=== PATIENT | female | born 1985 | race Caucasian/White ===

== ENCOUNTER 2016-03-06 17:47 | Emergency (ER) | payer OTHER ==
[2016-03-06 18:25] VITALS: TEMP 97.8; BMI 18.0
--- NOTE | 2016-03-06 20:06 | PDOC ---
*Physical Exam - Vital Signs Last Vital Signs Temp Pulse Resp BP Pulse Ox 97.8 F 112 H 16 123/80 97 03/06/16 17:56 03/06/16 17:56 03/06/16 17:56 03/06/16 17:56 03/06/16 17:56 ED Treatment Course - LABORATORY CBC & Chemistry Diagram: 03/06/16 22:20 03/06/16 21:11 Medical Decision Making - Medical Decision Making 03/06/16 20:06 agree with care from CLARICE Escobedo *DC/Admit/Observation/Transfer Diagnosis at time of Disposition: Head injury, Post-concussion syndrome - Discharge Dispostion Disposition: HOME Condition at time of disposition: Stable - Prescriptions Prescriptions: Acetaminophen/Caffeine/Butalb [Fioricet -] 1 - 2 tab PO Q6H PRN #28 tablet MDD 6 tabs PRN Reason: Severe Pain Ondansetron [Zofran Odt -] 4 mg SL Q6H PRN #20 od.tablet PRN Reason: Nausea - Referrals Referrals: Laly Robertson MD [Staff Physician] - - Patient Instructions Additional Instructions: FOLLOW UP WITH DR. ROBERTSON (NEUROLOGY) REGARDING YOUR SYMPTOMS. CALL TO SCHEDULE APPOINTMENT. TAKE MEDICATIONS PRESCRIBED. DO NOT DRINK ALCOHOL, DRIVE OR OPERATE HEAVY MACHINERY WHILE TAKING FIORICET. YOU SHOULD BE ON BRAIN REST. NO EXCESS CELLPHONE USE, TV, RADIO, BRIGHT LIGHTS. GET PLENTY REST AND STAY HYDRATED. YOU NEED TO SEE A NEUROLOGIST SOON POSSIBLE TO DEAL WITH YOUR SYMPTOMS. Print Language: BENGALI - Post Discharge Activity Work/School Note: Back to Work
[2016-03-06 21:34] LABS: URINE APPEARANCE CLEAR; URINE BILIRUBIN NEGATIVE (NEGATIVE); URINE BLOOD NEGATIVE (NEGATIVE); URINE COLOR STRAW; URINE GLUCOSE (UA) 3+ (NEGATIVE); URINE KETONE TRACE (NEGATIVE); URINE LEUK ESTERASE NEGATIVE (NEGATIVE); URINE NITRITE NEGATIVE (NEGATIVE); URINE PROTEIN NEGATIVE (NEGATIVE); URINE UROBILINOGEN NEGATIVE E.U./dl (0.2-1.0)
[2016-03-06] MEDS ORDERED: ACETAMINOPHEN/CAFFEINE/BUTALBITAL 1 TAB PO ONE (21:42)
[2016-03-06 21:45] LABS: CALCIUM 9.1 mg/dL (8.5-10.1); CREATININE 0.5 mg/dL (0.55-1.02)
--- NOTE | 2016-03-06 21:47 | PDOC ---
History of Present Illness - General Chief Complaint: Lightheaded Stated Complaint: DIZZINESS Time Seen by Provider: 03/06/16 19:42 History Source: Patient Exam Limitations: No Limitations - History of Present Illness Initial Comments: 03/06/16 21:42 30yo Female patient presents to ED c/o recent head injury w/ symptoms of nausea , confusion, headache. Patient reports she was recently evaluated in a [facility] on Mar 04 for intoxication and head injury. Patient states she can not recall everything but she had a fall with +LOC, and chipped her front tooth. She states Ct scans done but does not know the results. LNMP: Feb 21. She is experiencing dizziness, confusion, nausea, headache and back pain. She denies CP, Diff breathing, fever, vomiting, diarrhea, seizures, or any other complaints at this time. 03/06/16 21:46 Timing/Duration: other (2 days ago.) Severity: moderate Modifying Factors: worse with: cold therapy, eating, immobilization, medication , movement, rest, other Associated Symptoms: reports: headaches, other (Nausea, Confusion, back pain) Aspirin Received prior to arrival: No: no aspirin today, unknown, 81 mg x 1, 81 mg x 2, 81 mg x 3, 81 mg x 4, 325 mg x 1, provided at home, provided by EMS, provided by ED Asa Contraindications(Core Measure): No: Allergy, Other, Active Blding w/i 24 hrs., Plavix, Receiving Warfarin Beta Alisha Contraindications(Core Measure): No: Not Prescribed, Allergy, Bradycardia (HR <60bpm), Advanced Heart Block, Pacemaker, Other Beta Alisha Given by EMS(Core Measure): No Beta Alisha Taken at Home(Core Measure): No Beta Alisha Not Indicated at this Time(Core Measure): No Past History - Travel Traveled outside of the country in the last 30 days: No Close contact w/someone who was outside of country & ill: No - Past Medical History Allergies/Adverse Reactions: Allergies Allergy/AdvReac Type Severity Reaction Status Date / Time No Known Drug Allergies Allergy Verified 03/06/16 17:56 shellfish derived Allergy Verified 03/06/16 17:56 Home Medications: Ambulatory Orders Insulin Aspart [Novolog Flexpen] 0 unit SQ TID 10/31/14 Insulin Glargine,Hum.rec.anlog [Lantus Solostar PEN -] 22 units SQ HS 08/30/15 Acetaminophen/Caffeine/Butalb [Fioricet -] 1 - 2 tab PO Q6H PRN #28 tablet MDD 6 tabs 03/06/16 Methimazole [Tapazole] 10 mg PO DAILY 03/06/16 Ondansetron [Zofran Odt -] 4 mg SL Q6H PRN #20 od.tablet 03/06/16 Diabetes: Yes (type 1) Psychiatric Problems: Yes (anxiety/depression) Suicide Attempt (Hx): No Thyroid Disease: Yes (hyper) - Reproductive History Cervical CA: No Dysfunctional Uterine Bleeding: No Ectopic : No Endometrial CA: No Polycystic Ovaries: No Tubal Ligation: No - Psycho/Social/Smoking Cessation Hx Anxiety: Yes Suicidal Ideation: No Smoking History: Former smoker Have you smoked in the past 12 months: No Information on smoking cessation initiated: No Hx Alcohol Use: Yes Drug/Substance Use Hx: Yes Substance Use Type: Alcohol, Marijuana Review of Systems - Review of Systems Able to Perform ROS?: Yes Is the patient limited Macedonian proficient: No Constitutional: No: Chills, Fever HEENTM: Yes: Dental Problems. No: Eye Pain, Blurred Vision, Throat Swelling, Difficulty Swallowing Respiratory: No: Cough, Shortness of Breath, Wheezing, Hemoptysis Cardiac (ROS): Yes: Lightheadedness. No: Chest Pain, Edema, Palpitations ABD/GI: Yes: Nausea. No: Diarrhea, Vomiting : No: Dysuria, Hematuria Musculoskeletal: Yes: Back Pain Integumentary: No: Bruising, Rash Neurological: Yes: Headache, Dizziness Hematologic/Lymphatic: No: Easy Bleeding, Easy Bruising, Swollen Glands All Other Systems: Reviewed and Negative *Physical Exam - Vital Signs Last Vital Signs Temp Pulse Resp BP Pulse Ox 97.8 F 112 H 16 123/80 97 03/06/16 17:56 03/06/16 17:56 03/06/16 17:56 03/06/16 17:56 03/06/16 17:56 - Physical Exam Comments: 03/06/16 21:48 Patient able to successfully perform Nose to Finger test & Heel louis test. No ataxia noted. General Appearance: Yes: Nourished, Mild Distress HEENT: positive: EOMI, EMILIA, Normal ENT Inspection, Normal Voice, Symmetrical, TMs Normal, Pharynx Normal Neck: positive: Trachea midline, Supple Respiratory/Chest: positive: Lungs Clear, Normal Breath Sounds Cardiovascular: positive: Regular Rhythm, Regular Rate Gastrointestinal/Abdominal: positive: Normal Bowel Sounds, Soft Lymphatic: negative: Adenopathy Musculoskeletal: positive: Normal Inspection Extremity: positive: Normal Capillary Refill, Normal Inspection, Normal Range of Motion, Pelvis Stable Integumentary: positive: Normal Color, Dry, Warm Neurologic: positive: tank cooper II-XII NML intact, Fully Oriented, Alert, Normal Response, Finger to Nose, Other (Heel [place] testing.) ED Treatment Course - LABORATORY CBC & Chemistry Diagram: 03/06/16 22:20 03/06/16 21:11 - ADDITIONAL ORDERS Additional order review: Laboratory Results 03/06/16 21:15 Urine Color Straw Urine Appearance Clear Urine pH 8.0 D Ur Specific [place] 1.026 Urine Protein Negative Urine Glucose (UA) 3+ H Urine Ketones Trace H Urine Blood Negative Urine Nitrite Negative Urine Bilirubin Negative Urine Urobilinogen Negative Ur Leukocyte Esterase Negative Urine HCG, Qual Negative - RADIOLOGY Radiology Studies Ordered: Category Date Time Status HEAD CT WITHOUT CONTRAST [CT] Stat CT Scan 03/06/16 20:[address] W/O CONTRAST [CT] Stat CT Scan 03/06/16 20:10 Ordered *DC/Admit/Observation/Transfer Diagnosis at time of Disposition: Post-concussion syndrome Head injury Qualifiers: Encounter type: initial encounter Qualified Code(s): S09.90XA - Unspecified injury of head, initial encounter - Discharge Dispostion Disposition: HOME Condition at time of disposition: Stable Admit: No - Prescriptions Prescriptions: Acetaminophen/Caffeine/Butalb [Fioricet -] 1 - 2 tab PO Q6H PRN #28 tablet MDD 6 tabs PRN Reason: Severe Pain Ondansetron [Zofran Odt -] 4 mg SL Q6H PRN #20 od.tablet PRN Reason: Nausea - Referrals Referrals: Laly Robertson MD [Staff Physician] - - Patient Instructions Additional Instructions: FOLLOW UP WITH DR. ROBERTSON (NEUROLOGY) REGARDING YOUR SYMPTOMS. CALL TO SCHEDULE APPOINTMENT. TAKE MEDICATIONS PRESCRIBED. DO NOT DRINK ALCOHOL, DRIVE OR OPERATE HEAVY MACHINERY WHILE TAKING FIORICET. YOU SHOULD BE ON BRAIN REST. NO EXCESS CELLPHONE USE, TV, RADIO, BRIGHT LIGHTS. GET PLENTY REST AND STAY HYDRATED. YOU NEED TO SEE A NEUROLOGIST SOON POSSIBLE TO DEAL WITH YOUR SYMPTOMS. Print Language: LATVIAN - Post Discharge Activity Work/School Note: Back to Work
[2016-03-06] MEDS ORDERED: ACETAMINOPHEN/CAFFEINE/BUTALBITAL 1 TAB ONE (21:54)
[2016-03-06 23:22] LABS: BASOPHIL 0.1 % (0-2.0); MCH 26.5 pg (25.7-33.7); MCHC 32.4 g/dl (32.0-36.0); MEAN PLT VOLUME 8.4 fl (7.5-11.1); PLATELET COUNT 241 K/MM3 (134-434); RDW 12.9 % (11.6-15.6); WHITE BLOOD COUNT 5.7 K/mm3 (4.0-10.0)
[2016-03-06 23:32] VITALS: BP 132/74; PULSE 92
== END 2016-03-06 23:32 | disposition home or self-care (01) ==
LOC: JER 17:47
DX: F07.81 Postconcussional syndrome (principal); S09.90XD Unspecified injury of head, subsequent encounter; W19.XXXD Unspecified fall, subsequent encounter; E10.9 Type 1 diabetes mellitus without complications; Z79.4 Long term (current) use of insulin; F41.8 Other specified anxiety disorders; E05.90 Thyrotoxicosis, unspecified without thyrotoxic crisis or storm; Z87.891 Personal history of nicotine dependence
CPT/HCPCS: 36415; 70450-TC; 72131-TC; 80048; 81003; 84703; 85025; 99283-25

== ENCOUNTER 2017-05-31 04:15 | Inpatient (IN) | payer OTHER ==
[2017-05-31] MEDS ORDERED: SODIUM CHLORIDE 0.9% 1000 ML INFUS.BAG IV ONE (04:21)
[2017-05-31] MEDS ORDERED: ONDANSETRON 4 MG/2 ML VIAL ONE (04:36)
[2017-05-31] MEDS ORDERED: ONDANSETRON 4 MG/2 ML VIAL IVPUSH ONE (04:36)
[2017-05-31 04:40] LABS: BASO % 0.1 % (0-2.0); HEMATOCRIT 38.5 % (32.4-45.2); HEMOGLOBIN 12.9 GM/dL (10.7-15.3); LYMPH % 12.4 % (8-40); MCH 29.4 pg (25.7-33.7); MCHC 33.5 g/dl (32.0-36.0); MEAN CELL VOLUME 87.7 fl (80-96); MEAN PLT VOLUME 8.1 fl (7.5-11.1); NEUT % 82.5 % (42.8-82.8); PLATELET COUNT 298 K/MM3 (134-434); RBC 4.39 M/mm3 (3.60-5.2); RDW 13.7 % (11.6-15.6); WHITE BLOOD COUNT 17.4 K/mm3 (4.0-10.0)
--- NOTE | 2017-05-31 05:01 | PDOC ---
History of Present Illness - General Chief Complaint: Blood Sugar Problem Stated Complaint: SUGAR PROBLEM Time Seen by Provider: 05/31/17 04:20 History Source: Patient Exam Limitations: No Limitations - History of Present Illness Initial Comments: 05/31/17 04:59 The patient is a 31F with a PMH of T1DM and hypothyroidism who presents to the ER with abdominal pain. The patient states that she's had difficulty keeping her BG down for the past 2 days. She states that she's had a sore throat, cough , and muscle aches for 2 days as well. She states her abdominal pain is diffuse but cannot describe it further. She associates it with nausea and vomiting but denies diarrhea, constipation, and fever. She admits to chills and increased urinary frequency. She states she was in DKA 2 weeks ago but is not sure why. Past History - Past Medical History Allergies/Adverse Reactions: Allergies Allergy/AdvReac Type Severity Reaction Status Date / Time No Known Drug Allergies Allergy Verified 05/31/17 04:21 Home Medications: Ambulatory Orders Insulin Aspart [Novolog Flexpen] 0 unit SQ ASDIR 10/31/14 Acetaminophen/Caffeine/Butalb [Fioricet -] 1 - 2 tab PO Q6H PRN #28 tablet MDD 6 tabs 03/06/16 Methimazole [Tapazole] 10 mg PO DAILY 03/06/16 COPD: No Diabetes: Yes (type 1) Psychiatric Problems: Yes (anxiety/depression) Thyroid Disease: Yes (hyper) - Reproductive History Cervical CA: No Dysfunctional Uterine Bleeding: No Ectopic : No Endometrial CA: No Polycystic Ovaries: No Tubal Ligation: No - Suicide/Smoking/Psychosocial Hx Smoking History: Unknown if ever smoked Have you smoked in the past 12 months: No Hx Alcohol Use: Yes (SOCIAL) Drug/Substance Use Hx: No Substance Use Type: Marijuana Review of Systems - Review of Systems Able to Perform ROS?: Yes Comments:: 05/31/17 05:07 GENERAL/CONSTITUTIONAL: Positive for fevers and chills. No weakness. HEAD, EYES, EARS, NOSE AND THROAT: Positive for sore throat. No change in vision. No ear pain or discharge. CARDIOVASCULAR: No chest pain, palpitations, or lightheadedness. RESPIRATORY: Positive for cough. No wheezing, shortness of breath, or hemoptysis. GASTROINTESTINAL: Positive for nausea, abdominal pain, and vomiting. No diarrhea or constipation. GENITOURINARY: Positive for increased frequency. No dysuria, discharge, hematuria, or change in urination. MUSCULOSKELETAL: Postive for myalgias. No neck or back pain. SKIN: No rash or lesions. NEUROLOGIC: Positive for headache. No numbness, tingling, weakness, loss of consciousness, or change in strength/sensation. ENDOCRINE: Positive for increased thirst. No abnormal weight change. HEMATOLOGIC/LYMPHATIC: No anemia, easy bleeding, or history of blood clots. ALLERGIC/IMMUNOLOGIC: No hives or skin allergy. Is the patient limited [place] Islander proficient: No *Physical Exam - Vital Signs Last Vital Signs Temp Pulse Resp BP Pulse Ox 98.5 F 106 H 24 118/61 100 05/31/17 04:23 05/31/17 04:23 05/31/17 04:23 05/31/17 04:23 05/31/17 04:23 - Physical Exam Comments: 05/31/17 05:16 GENERAL: Well developed, well nourished. Awake and alert. In mild distress. HEENT: Normocephalic, atraumatic. Hearing grossly normal. Dry mucous membranes. PERRLA, EOMI. No conjunctival pallor. Sclera are non-icteric. NECK: Supple. Full ROM. No JVD. No lymphadenopathy. CARDIOVASCULAR: Regular rate and rhythm. No murmurs, rubs, or gallops. PULMONARY: No evidence of respiratory distress. Lungs clear to auscultation bilaterally. No wheezing, rales or rhonchi. ABDOMINAL: Soft. Non-tender. Non-distended. No rebound or guarding. GENITOURINARY: No CVA tenderness bilaterally. MUSCULOSKELETAL: Normal range of motion at all joints. No bony deformities or tenderness. EXTREMITIES: No cyanosis. No clubbing. No edema. No calf tenderness. SKIN: Warm and dry. Normal capillary refill. No rashes. No jaundice. NEUROLOGICAL: Alert, awake, appropriate. Cranial nerves 2-12 intact. Normal speech. Gait is normal without ataxia. PSYCHIATRIC: Cooperative. Good eye contact. Appropriate mood and affect. ED Treatment Course - LABORATORY CBC & Chemistry Diagram: 05/31/17 04:31 05/31/17 04:31 - ADDITIONAL ORDERS Additional order review: Laboratory Results 05/31/17 04:31 Serum , Qual Negative 05/31/17 04:31 RBC 4.39 MCV 87.7 MCHC 33.5 RDW 13.7 MPV 8.1 Neutrophils % 82.5 D Lymphocytes % 12.4 D Monocytes % 5.0 Eosinophils % 0.0 Basophils % 0.1 - RADIOLOGY Radiology Studies Ordered: Category Date Time Status CHEST X-RAY PORTABLE* [RAD] Stat Radiology 05/31/17 04:21 Ordered - Medications Given in the ED: ED Medications Discontinued Medications Generic Name Dose Route Start Last Admin Trade Name Zoey PRN Reason Stop Dose Admin Ondansetron HCl 4 mg 05/31/17 04:36 05/31/17 04:42 Zofran Injection IVPUSH 05/31/17 04:37 4 mg ONCE ONE Administration Sodium Chloride 1,000 ml 05/31/17 04:21 05/31/17 04:42 Normal Saline - IV 05/31/17 04:22 1,000 ml ONCE ONE Administration Medical Decision Making - Medical Decision Making 05/31/17 05:17 The patient is a 31F with a PMH of T1DM and hypothyroidism who presents to the ER with abdominal pain, vomiting, and uncontrollable glucose. Serum acetone +, glucose 427, pending rest of CMP. Giving IV hydration as pt is likely in DKA 2/2 to either UTI and/or influenza. Will send swab. 05/31/17 05:30 AG 18 and lactate 2.8. IV hydration continuing. Pending UA. Will microblog for hospitalist and page ICU once UA is back. 05/31/17 05:53 UA negative. Utox pending. ICU CASE MANAGEMENT RN paged. 05/31/17 06:11 Dr. Sharma accepts admission for ICU bed. Pending CASE MANAGEMENT RN call back. 05/31/17 07:[address] Pt signed out to Dr. Shrestha, day team. *DC/Admit/Observation/Transfer Diagnosis at time of Disposition: Diabetes type 1, uncontrolled Qualifiers: Diabetes mellitus complication status: with unspecified complications Qualified Code(s): E10.8 - Type 1 diabetes mellitus with unspecified complications DKA (diabetic ketoacidoses) Qualifiers: Diabetes mellitus type: type 1 Diabetes mellitus complication detail: without coma Qualified Code(s): E10.10 - Type 1 diabetes mellitus with ketoacidosis without coma - Discharge Dispostion Condition at time of disposition: Guarded Admit: Yes - Referrals - Patient Instructions - Post Discharge Activity
[2017-05-31 05:06] LABS: ALBUMIN 4.3 g/dl (3.4-5.0); ALK PHOS 80 U/L (45-117); ANION GAP 18 (8-16); BILIRUBIN,TOTAL 1.1 mg/dL (0.2-1.0); BLOOD UREA NITROGEN 14 mg/dL (7-18); CALCIUM 9.3 mg/dL (8.5-10.1); CHLORIDE 101 mmol/L (98-107); CO2 15 mmol/L (21-32); SGPT/ALT 16 U/L (12-78); SODIUM 134 mmol/L (136-145); TOT PROT 7.8 g/dl (6.4-8.2)
[2017-05-31 05:09] LABS: POTASSIUM 4.5 mmol/L (3.5-5.1); SGOT/AST 15 U/L (15-37)
[2017-05-31 05:10] LABS: GLUCOSE,RANDOM 427 mg/dL (74-106)
[2017-05-31 05:14] LABS: ACETONE SERUM POSITIVE LARGE 3+ (NEGATIVE)
[2017-05-31] MEDS ORDERED: INSULIN REGULAR HUMAN 100 UNITS/ML *VIAL IVPUSH ONE ×2 (05:32→09:51)
[2017-05-31] MEDS ORDERED: INSULIN REGULAR HUMAN 100 UNITS/ML *VIAL ONE (05:36)
[2017-05-31] MEDS ORDERED: POTASSIUM CHLORIDE 20 MEQ PREMIX IVPB 100 ML IVPB ONE (05:38)
[2017-05-31] MEDS ORDERED: BENZOCAINE/MENTH/CETYLPYRD CL 1 EACH LOZENGE MM PRN (05:47)
[2017-05-31 05:51] LABS: URINE APPEARANCE CLEAR; URINE BILIRUBIN NEGATIVE (<2.0 mg/dL); URINE BLOOD NEGATIVE (NEGATIVE); URINE COLOR STRAW; URINE GLUCOSE (UA) 3+ (NEGATIVE); URINE KETONE 2+ (NEGATIVE); URINE LEUK ESTERASE NEGATIVE (NEGATIVE); URINE NITRITE NEGATIVE (NEGATIVE); URINE PROTEIN NEGATIVE (NEGATIVE); URINE UROBILINOGEN NEGATIVE mg/dL (0.2-1.0)
--- NOTE | 2017-05-31 06:05 | PDOC ---
Attending Attestation - Resident Resident Name: Yemi West - ED Attending Attestation I have performed the following: I have examined & evaluated the patient, The case was reviewed & discussed with the resident, I agree w/resident's findings & plan, Exceptions are as noted - Physicial Exam PE: 05/31/17 06:07 *Physical Exam General Appearance: Yes: Appropriately Dressed. No: Apparent Distress, Intoxicated HEENT: positive: EOMI, EMILIA, Normal ENT Inspection, Normal Voice, TMs Normal, Pharynx Normal. negative: Pale Conjunctivae, Photophobia, Scleral Icterus (R), Scleral Icterus (L) Neck: positive: Trachea midline, Normal Thyroid, Supple. negative: Tender, Rigid, Carotid bruit, Stridor, Lymphadenopathy (R), Lymphadenopathy (L), Thyromegaly Respiratory/Chest: positive: Lungs Clear, Normal Breath Sounds. negative: Chest Tender, Respiratory Distress, Accessory Muscle Use, Labored Respiration, RES, Crackles, Rales, Rhonchi, Stridor, Wheezing, Dullness Cardiovascular: positive: Regular Rhythm, Regular Rate, S1, S2. negative: Edema , JVD, Murmur, Bradycardia, Tachycardia Vascular Pulses: Dorsalis-Pedis (R): 2+, Doralis-Pedis (L): 2+ Gastrointestinal/Abdominal: positive: Normal Bowel Sounds, Flat, Soft. negative : Tender, Organomegaly, Pulsatile Mass, Increased Bowel Sounds, Decreased BS, Distended, Guarding, Rebound, Hernia, Hepatomegaly, Spleenomegaly Lymphatic: negative: Adenopathy, Tenderness Musculoskeletal: positive: Normal Inspection. negative: CVA Tenderness, Decreased Range of Motion Extremity: positive: Normal Capillary Refill, Normal Inspection, Normal Range of Motion, Pelvis Stable. negative: Tender, Pedal Edema, Swelling, Erythema Integumentary: positive: Normal Color, Dry, Warm. negative: Cyanotic, Erythema , Jaundice, Rash Neurologic: positive: bottom loader II-XII NML intact, Fully Oriented, Alert, Normal Mood/ Affect, Motor Strength 5/5. negative: EOM Palsy, Facial Droop, Sensory Deficit - Medical Decision Making 05/31/17 06:07 Pt admitted to ICU for DKA <Diony Cartagena - Last Filed: 05/31/17 06:07> - HPI HPI: 05/31/17 06:24 Patient is a 31 year old female with a significant past medical history of herpes, IDDM and hypothyroidism, who was brought by EMS to the ED with complaints of diffuse abdominal pain that began just prior to ED arrival. Patient reports being unable to control her blood sugar for the last 2 days, prompting her to take multiple doses of her insulin in an attempt to bring it down. She reports experiencing associated symptoms of sore throat, cough, and muscle aches that began 2 days ago. Patient reports experiencing associated nausea, intermittent vomiting, slight chills, as well as increased urinary frequency. She reports being diagnosed with DKA 2 weeks ago but is not sure what triggered it. Denies chest pain, Sob. Denies fevers, chills. Denies contact with sick individuals, out of state travelling. Denies any other symptoms. Allergies: Shellfish Social History: Former smoker. Social drinker. Surgical History: None PMD: Dr. Noman escamilla (As of 2014). <Sachin Kaur - Last Filed: 05/31/17 06:24>
[2017-05-31] MEDS ORDERED: INSULIN REGULAR 100 UNITS in SODIUM CHLORIDE 99 ML IVPB SCH ×3 (06:15→10:34)
[2017-05-31 07:04] LABS: COCAINE, UR NEGATIVE ng/ml (CUTOFF=300); METHADONE, UR NEGATIVE ng/ml (CUTOFF=300); OPIATES, URI NEGATIVE ng/ml (CUTOFF=300); PHENCYCLIDINE,URINE NEGATIVE ng/ml (CUTOFF=25); URINE AMPHETAMINES NEGATIVE ng/ml (CUTOFF=500); URINE BARBITURATES NEGATIVE ng/ml (CUTOFF=200); URINE BENZODIAZEPINES NEGATIVE ng/ml (CUTOFF=200)
[2017-05-31 07:33] LABS: VENOUS PC02 34.5 mmHg (38-52); VENOUS PH 7.27 (7.32-7.42)
[2017-05-31 07:34] LABS: VENOUS PO2 49.9 mmHg (28-48)
[2017-05-31] MEDS ORDERED: SODIUM CHLORIDE 0.45%/POT 20 MEQ/1,000 ML INFUS.BAG IV SCH (08:00)
[2017-05-31] MEDS ORDERED: SODIUM CHLORIDE 1,000 ML with POTASSIUM CHLORIDE 20 MEQ IVPB SCH ×2 (08:30→08:54)
--- NOTE | 2017-05-31 08:38 | HP ---
<Eric Toscano - Last Filed: 05/31/17 11:28> CHIEF COMPLAINT: abd pain, nausea, vomiting PCP: Dr. Noman Voss (in process of seeing new PCP). Endocrine in [place] HISTORY OF PRESENT ILLNESS: 31 y/o F w/PMH of DM type 1, hyperthyroidism presents to the ER with abd pain, nausea, vomiting, chills (x3, non bloody) since this morning. Pt has noted that her BGMs at home have been elevated over the last 2-3 days in the 3-400s and was checking 6-7 times per day and has polyuria during this time. She also reports sore throat after throwing up, light-headedness this morning, and mild chest pressure at sternum with no radiation (rated at 2-3/10). Pt uses an insulin pump and has been giving insulin according to sugars but they were not responding appropriately. She felt the abd pain, nausea, vomiting, and chills this AM and was at her baseline state of health otherwise over the last 1-2 weeks. She was recently discharged approx 2 weeks ago from [facility] for DKA and states she's had DKA multiple times in the past. She has sick contacts with her father who has cold symptoms and also notes scratches from her kitten ( 6 months old, not up to date on immunizations) and pet rats. She also reports drinking beer and liquor the night before she noted her sugars being elevated ( approximately had 4 drinks). She denies fevers, sob, constipation, dyspnea, LE swelling, changes in vision, recent travel. At this time pt feels improved, no longer has abd pain, chest pain, and reports being hungry. ER course was notable for: (1) zofran, NS 1L, 20 meq KCl, insulin drip, CXR (2) (3) Recent Travel: denies PAST MEDICAL HISTORY: hyperthyroidism, DM1 PAST SURGICAL HISTORY: denies Social History: Smoking: former smoker Alcohol: current drinker, social Drugs: denies Family History: Mother: HTN, asthma. Father: Hyperthyroidism, skin cancer. Uncle type 2 diabetes.k Allergies No Known Drug Allergies Allergy (Verified 05/31/17 04:21) HOME MEDICATIONS: Home Medications Medication Instructions Recorded Insulin Aspart [Novolog Flexpen] 0 unit SQ ASDIR 10/31/14 Acetaminophen/Caffeine/Butalb 1 - 2 tab PO Q6H PRN #28 tablet 03/06/16 [Fioricet -] MDD 6 tabs Methimazole [Tapazole] 10 mg PO DAILY 03/06/16 REVIEW OF SYSTEMS CONSTITUTIONAL: +chills Absent: fever, loss of appetite HEENT: +sore throat Absent: visual changes CARDIOVASCULAR: +chest pressure, light-headedness Absent: peripheral edema RESPIRATORY: Absent: cough, shortness of breath, dyspnea with exertion GASTROINTESTINAL: +abd pain, nausea, vomiting, loose stool Absent: constipation, hematochezia GENITOURINARY: +frequency Absent: dysuria NEUROLOGIC: +dizziness PHYSICAL EXAMINATION Vital Signs - 24 hr 05/31/17 05/31/17 05/31/17 04:23 05:52 07:00 Temperature 98.5 F Pulse Rate 106 H Pulse Rate [ 89 Apical] Respiratory 24 16 Rate Blood Pressure 118/61 Blood Pressure 102/54 [Right Arm] O2 Sat by Pulse 100 100 100 Oximetry (%) GENERAL: Awake, alert, and fully oriented, in no acute distress. EYES: extraocular movements intact, sclera anicteric, conjunctiva clear. EARS, NOSE, THROAT: Dry mucous membranes. NECK: Normal range of motion, supple without lymphadenopathy LUNGS: Breath sounds equal, clear to auscultation bilaterally. No wheezes, and no crackles. No accessory muscle use. HEART: Regular rate and rhythm, normal S1 and S2 without murmur ABDOMEN: Soft, nontender, not distended, normoactive bowel sounds MUSCULOSKELETAL: No CVA tenderness. LOWER EXTREMITIES: 2+ pulses, warm, well-perfused. No peripheral edema. NEUROLOGICAL: Normal speech. Gait not observed. PSYCHIATRIC: Cooperative. Good eye contact. Appropriate mood and affect. SKIN: Warm, dry Laboratory Results - last 24 hr 05/31/17 05/31/17 05/31/17 04:31 04:31 04:31 WBC 17.4 H D RBC 4.39 Hgb 12.9 Hct 38.5 MCV 87.7 MCH 29.4 D MCHC 33.5 RDW 13.7 Plt Count 298 D MPV 8.1 Neutrophils % 82.5 D Lymphocytes % 12.4 D Monocytes % 5.0 Eosinophils % 0.0 Basophils % 0.1 VBG pH POC VBG pCO2 POC VBG pO2 Mixed VBG HCO3 Sodium 134 L Potassium 4.5 Chloride 101 Carbon Dioxide 15 L Anion Gap 18 H BUN 14 Creatinine 1.0 Creat Clearance w eGFR > 60 POC Glucometer Random Glucose 427 H* Lactic Acid Calcium 9.3 Magnesium 2.0 Total Bilirubin 1.1 H D AST 15 ALT 16 Alkaline Phosphatase 80 Total Protein 7.8 Albumin 4.3 Serum , Qual Negative Urine Color Urine Appearance Urine pH Ur Specific [place] Urine Protein Urine Glucose (UA) Urine Ketones Urine Blood Urine Nitrite Urine Bilirubin Urine Urobilinogen Ur Leukocyte Esterase Opiates Screen Methadone Screen Barbiturate Screen Phencyclidine Screen Ur Amphetamines Screen MDMA (Ecstasy) Screen Benzodiazepines Screen Cocaine Screen U Marijuana (THC) Screen Acetone, Qual Positive large 3+ H 05/31/17 05/31/17 05/31/17 04:31 05:20 05:20 WBC RBC Hgb Hct MCV MCH MCHC RDW Plt Count MPV Neutrophils % Lymphocytes % Monocytes % Eosinophils % Basophils % VBG pH POC VBG pCO2 POC VBG pO2 Mixed VBG HCO3 Sodium Potassium Chloride Carbon Dioxide Anion Gap BUN Creatinine Creat Clearance w eGFR POC Glucometer Random Glucose Lactic Acid 2.8 H* Calcium Magnesium Total Bilirubin AST ALT Alkaline Phosphatase Total Protein Albumin Serum , Qual Urine Color Straw Urine Appearance Clear Urine pH 5.0 D Ur Specific [place] 1.022 Urine Protein Negative Urine Glucose (UA) 3+ H Urine Ketones 2+ H Urine Blood Negative Urine Nitrite Negative Urine Bilirubin Negative Urine Urobilinogen Negative Ur Leukocyte Esterase Negative Opiates Screen Negative Methadone Screen Negative Barbiturate Screen Negative Phencyclidine Screen Negative Ur Amphetamines Screen Negative MDMA (Ecstasy) Screen Negative Benzodiazepines Screen Negative Cocaine Screen Negative U Marijuana (THC) Screen Positive Acetone, Qual 05/31/17 05/31/17 05/31/17 05:52 06:10 06:40 WBC RBC Hgb Hct MCV MCH MCHC RDW Plt Count MPV Neutrophils % Lymphocytes % Monocytes % Eosinophils % Basophils % VBG pH 7.27 L POC VBG pCO2 34.5 L D POC VBG pO2 49.9 H D Mixed VBG HCO3 15.5 L Sodium Potassium Chloride Carbon Dioxide Anion Gap BUN Creatinine Creat Clearance w eGFR POC Glucometer [phone] Random Glucose Lactic Acid 1.7 Calcium Magnesium Total Bilirubin AST ALT Alkaline Phosphatase Total Protein Albumin Serum , Qual Urine Color Urine Appearance Urine pH Ur Specific [place] Urine Protein Urine Glucose (UA) Urine Ketones Urine Blood Urine Nitrite Urine Bilirubin Urine Urobilinogen Ur Leukocyte Esterase Opiates Screen Methadone Screen Barbiturate Screen Phencyclidine Screen Ur Amphetamines Screen MDMA (Ecstasy) Screen Benzodiazepines Screen Cocaine Screen U Marijuana (THC) Screen Acetone, Qual Imaging CXR: No acute pathology Active Medications Benzocaine/Menthol (Cepacol Lozenge -) 1 each MM PRN PRN PRN Reason: SORE THROAT Last Admin: 05/31/17 06:27 Dose: 1 each Chlorhexidine Gluconate (Hibiclens For Decolonization -) 1 applic TP HS IGOR Heparin Sodium (Porcine) (Heparin -) 5,000 unit SQ Q8H-IV IGOR Insulin Human Regular 100 (units/ Sodium Chloride) 100 mls @ 5.44 mls/hr IVPB TITR IGOR; 0.1 UNITS/KG/HR PRN Reason: Protocol Last Admin: 05/31/17 05:48 Dose: 0.1 units/kg/hr, 5.44 mls/hr Potassium Chloride 20 meq/ (Sodium Chloride) 1,010 mls @ 100 mls/hr IVPB ASDIR IGOR Mupirocin (Bactroban Ointment (For Decolonization) -) 1 applic NS BID IGOR Stop: 06/05/17 09:59 Ondansetron HCl (Zofran Injection) 4 mg IVPUSH Q6H PRN PRN Reason: NAUSEA ASSESSMENT/PLAN: 31 y/o F w/PMH of DM type 1, hyperthyroidism presents to the ER with abd pain, nausea, vomiting, chills since this morning. Admitted for DKA. -DKA -VBG pH 7.27; serum bicarb 15, Serum glucose 427, initial LA 2.8, 2+ ketones in urine, 3+ ketones in blood -lactic acidosis now resolved -NS @ 200 ml/hr + 20meq KCl -change fluids to D5 once glucose falls below 200 -zofran 4 mg IV q6h PRN for nausea -BGM q1h, BMP q2h until gap closes, monitor K -c/w insulin drip, once gap closes change to long acting and give food (if pt can tolerate) and overlap drip for 2 hours -Endocrine consult -Leukocytosis -likely secondary to DKA -monitor UCx, BCx -flu negative -Hyperthyroidism -c/w methimazole -DVT ppx -Heparin 5000 units sq q8h -FEN -NS @ 200 ml/hr + 20 meq KCl -monitor electrolytes. Pseudohyponatremia: corrected 140. -NPO for now, give pescatarian diet once able -Dispo: Admit to ICU Visit type - Emergency Visit Emergency Visit: Yes ED Registration Date: 05/31/17 Care time: The patient presented to the Emergency Department on the above date and was hospitalized for further evaluation of their emergent condition. - New Patient This patient is new to me today: Yes Date on this admission: 05/31/17 - Critical Care Critical Care patient: Yes Total Critical Care Time (in minutes): 39 Critical Care Statement: The care of this patient involved high complexity decision making to prevent further life threatening deterioration of the patient 's condition and/or to evaluate & treat vital organ system(s) failure or risk of failure. Hospitalist Screening - Colonoscopy Questionnaire Colonoscopy Questionnaire: Colonoscopy Questionnaire - Patient: 50 - 75 years old and never had a screening colonoscopy: Unknown History of colon or rectal polyps, or CA: Unknown History of IBD, Crohn's disease or UC: Unknown History of abdominal radiation therapy as a child: Unknown - Relative: 1 with colon or rectal CA, or polyps at age 60 or younger: Unknown Colon or rectal CA diagnosed at age 45 or younger: Unknown Multiple relatives with colon or rectal CA: Unknown - Outcome: Screening Result: Negative Screen <Randa Sanon - Last Filed: 05/31/17 16:43> Patient is seen and examined. Patient presented with DKA , had a recent episode of DKA, 2 weeks ago. The last episode was 3 yrs ago. patient is feeling better post IVF and Insulin drip. Endocrine consult requested Dr. Scott. Agree the resident's plan. Vital Signs Temperature 98 F 05/31/17 12:00 Pulse Rate 84 05/31/17 12:00 Respiratory Rate 16 05/31/17 12:00 Blood Pressure 97/48 05/31/17 12:00 O2 Sat by Pulse Oximetry (%) 100 05/31/17 09:00 Hospitalist Screening - Colonoscopy Questionnaire Colonoscopy Questionnaire: Colonoscopy Questionnaire
[2017-05-31] MEDS ORDERED: ONDANSETRON 4 MG/2 ML VIAL IVPUSH PRN (08:48)
[2017-05-31 08:52] VITALS: BMI 18.7
--- NOTE | 2017-05-31 09:07 | PN ---
Physical Exam: UPDATE 1: This afternoon pt trialed regular diabetic diet for lunch. She appropriately bolused short-acting insulin via her insulin pump based on what she ate. 2hrs after pt's meal her POC glucometer was over range. She is now complaining of nausea --Zofran 4mg IVP for her nausea --Stat random glucose to confirm glucometer reading --Dr. Paz contacted --Would await confirmation and if continues to be >400 per glucometer's suggestion with bolus 6 or 7 units Novolog --BGM monitoring --IF episode occurs again and pt's insulin pump seems to be dysfunctional would remove insulin pump (and turn off) and cover her with Levemir and ISS for now. ICU Resident: SUBJECTIVE: Briefly, 31yo F with IDDM and hyperthyroidism who presented to the ER with abdominal pain, nausea, and nonbloody multiple episodes of vomiting. PT states that roughly 2 days ago she was socially drinking on the weekend and noticed that her glucose levels were becoming consistently elevated whilst checking around 6-7 times per day. She reports having an insulin pump and appropriately boluses her glucose levels as needed. Currently, pt is still on insulin gtt, but reports having resolution of all her symptom. She reports being very hungry right now. Denies fever/chills, SOB, chest pain/discomfort, palpitations, constipation/diarrhea, recent travel, dysuria. Pt also reports she has an program services assistant in [facility] which follows her management. She states she was supposed to see them today. OBJECTIVE: Vital Signs Period Temp Pulse Resp BP Sys/Leone Pulse Ox Last 24 Hr 98.5 F-98.6 F 88-106 16-24 102-118/50-61 100-100 GENERAL: NAD, awake, alert, laying in bed HEENT: EOMI, ANTONINO, No JVD, NC/AT LUNGS: CTA bilaterally, no wheezes, no crackles, no accessory muscle use. HEART: RRR, S1, S2 without murmur ABDOMEN: Soft, nontender, nondistended, normoactive bowel sounds, no guarding, no hepatomegaly BACK: No CVA tenderness, no gross abnormalities EXTREMITIES: 2+ FP pulses, warm, well-perfused, no edema. PSYCH: Normal mood, normal affect. SKIN: Warm, dry, no rashes or lesions noted Laboratory Results - last 24 hr 05/31/17 05/31/17 05/31/17 04:31 04:31 04:31 WBC 17.4 H D RBC 4.39 Hgb 12.9 Hct 38.5 MCV 87.7 MCH 29.4 D MCHC 33.5 RDW 13.7 Plt Count 298 D MPV 8.1 Neutrophils % 82.5 D Lymphocytes % 12.4 D Monocytes % 5.0 Eosinophils % 0.0 Basophils % 0.1 VBG pH POC VBG pCO2 POC VBG pO2 Mixed VBG HCO3 Sodium 134 L Potassium 4.5 Chloride 101 Carbon Dioxide 15 L Anion Gap 18 H BUN 14 Creatinine 1.0 Creat Clearance w eGFR > 60 POC Glucometer Random Glucose 427 H* Lactic Acid Calcium 9.3 Magnesium 2.0 Total Bilirubin 1.1 H D AST 15 ALT 16 Alkaline Phosphatase 80 Total Protein 7.8 Albumin 4.3 Lipase Serum , Qual Negative Urine Color Urine Appearance Urine pH Ur Specific [place] Urine Protein Urine Glucose (UA) Urine Ketones Urine Blood Urine Nitrite Urine Bilirubin Urine Urobilinogen Ur Leukocyte Esterase Opiates Screen Methadone Screen Barbiturate Screen Phencyclidine Screen Ur Amphetamines Screen MDMA (Ecstasy) Screen Benzodiazepines Screen Cocaine Screen U Marijuana (THC) Screen Acetone, Qual Positive large 3+ H 05/31/17 05:20 WBC RBC Hgb Hct MCV MCH MCHC RDW Plt Count MPV Neutrophils % Lymphocytes % Monocytes % Eosinophils % Basophils % VBG pH POC VBG pCO2 POC VBG pO2 Mixed VBG HCO3 Sodium Potassium Chloride Carbon Dioxide Anion Gap BUN Creatinine Creat Clearance w eGFR POC Glucometer Random Glucose Lactic Acid Calcium Magnesium Total Bilirubin AST ALT Alkaline Phosphatase Total Protein Albumin Lipase Serum , Qual Urine Color Straw Urine Appearance Clear Urine pH 5.0 D Ur Specific [place] 1.022 Urine Protein Negative Urine Glucose (UA) 3+ H Urine Ketones 2+ H Urine Blood Negative Urine Nitrite Negative Urine Bilirubin Negative Urine Urobilinogen Negative Ur Leukocyte Esterase Negative Opiates Screen Methadone Screen Barbiturate Screen Phencyclidine Screen Ur Amphetamines Screen MDMA (Ecstasy) Screen Benzodiazepines Screen Cocaine Screen U Marijuana (THC) Screen Acetone, Qual Active Medications Generic Name Dose Route Start Last Admin Trade Name Freq PRN Reason Stop Dose Admin Benzocaine/Menthol 1 each 05/31/17 05:47 05/31/17 06:27 Cepacol Lozenge - MM 1 each PRN PRN Administration SORE THROAT Chlorhexidine Gluconate 1 applic 05/31/17 22:00 Hibiclens For Decolonization - TP HS IGOR Heparin Sodium (Porcine) 5,000 unit 05/31/17 10:00 Heparin - SQ Q8H-IV IGOR Insulin Human Regular 100 100 mls @ 5.44 mls/hr 05/31/17 06:45 05/31/17 05:48 units/ Sodium Chloride IVPB 0.1 units/kg/hr TITR IGOR 5.44 mls/hr Protocol Administration 0.1 UNITS/KG/HR Potassium Chloride 20 meq/ 1,010 mls @ 200 mls/hr 05/31/17 08:54 Sodium Chloride IVPB ASDIR IGOR Methimazole 10 mg 05/31/17 10:00 Tapazole - PO DAILY IGOR Mupirocin 1 applic 05/31/17 10:00 Bactroban Ointment (For Decolonization) - NS 06/05/17 09:59 BID IGOR Ondansetron HCl 4 mg 05/31/17 08:48 Zofran Injection IVPUSH Q6H PRN NAUSEA ASSESSMENT/PLAN: Neuro: Neurologically intact Respiratory: Not in distress Cardiovascular: Hemodynamically stable Endocrine: Mild DKA --Pt currently remains on insulin gtt, but awaiting BMP to see if anion gap <12 --If gap has closed, will d/c gtt and trial food --NS+20KCl @200cc/hr for fluid hydration --Endocrinology on board --Pt currently has insulin pump with a baseline basal rate --Will defer to endocrinology on management --Zofran 4mg IVP PRN for nausea --Monitor BGM History of hyperthyroidism --Continue home Methimazole 10mg PO qDaily FEN: Fluids: NS+KCl 20mEq @200cc/hr Electrolyte abnormalities: Awaiting CMP, correct Na for glucose WNL on prior Nutrition: Will trial foods if anion gap <12 PPX: DVT - Heparin SQ GI - Not indicated Dispo: Will discuss with primary team about possible discharge home from ICU given pt has follow-up on outpatient basis already Case discussed with Dr. Yoandy Ramírez, DO - IM PGY-1 Visit type - Emergency Visit Emergency Visit: No - New Patient This patient is new to me today: Yes Date on this admission: 05/31/17 - Critical Care Critical Care patient: Yes Total Critical Care Time (in minutes): 38 Critical Care Statement: The care of this patient involved high complexity decision making to prevent further life threatening deterioration of the patient 's condition and/or to evaluate & treat vital organ system(s) failure or risk of failure.
[2017-05-31] MEDS ORDERED: D5-NS + 20 MEQ KCL - 20 MEQ/1,000 ML INFUS.BAG IV SCH (10:00)
[2017-05-31 10:23] LABS: ANION GAP 5 (8-16); BLOOD UREA NITROGEN 11 mg/dL (7-18); CALCIUM 7.7 mg/dL (8.5-10.1); CHLORIDE 111 mmol/L (98-107); CO2 22 mmol/L (21-32); CREATININE 0.7 mg/dL (0.55-1.02); GLUCOSE,RANDOM 96 mg/dL (74-106); POTASSIUM 3.7 mmol/L (3.5-5.1); SODIUM 138 mmol/L (136-145)
[2017-05-31 10:28] LABS: PHOSPHOROUS 1.4 mg/dL (2.5-4.9)
[2017-05-31 11:06] LABS: ANION GAP 9 (8-16); BLOOD UREA NITROGEN 10 mg/dL (7-18); CALCIUM 7.9 mg/dL (8.5-10.1); CHLORIDE 109 mmol/L (98-107); CO2 21 mmol/L (21-32); CREATININE 0.7 mg/dL (0.55-1.02); GLUCOSE,RANDOM 98 mg/dL (74-106); POTASSIUM 3.7 mmol/L (3.5-5.1); SODIUM 139 mmol/L (136-145)
--- NOTE | 2017-05-31 11:38 | PN ---
Teaching Attending Note Name of Resident: Arthur Ramírez ATTENDING PHYSICIAN STATEMENT I saw and evaluated the patient. I reviewed the resident's note and discussed the case with the resident. I agree with the resident's findings and plan as documented. SUBJECTIVE: Awake and alert. Feels overall better. AG closed with improvement in her blood sugar. Intake & Output 05/28/17 05/29/17 05/30/17 05/31/17 23:59 23:59 23:59 23:59 Intake Total 3000 Balance 3000 Weight 123 lb Last Vital Signs Temp Pulse Resp BP Pulse Ox 98.6 F 82 16 93/46 100 05/31/17 08:30 05/31/17 10:00 05/31/17 10:00 05/31/17 10:00 05/31/17 09:00 Active Medications Benzocaine/Menthol (Cepacol Lozenge -) 1 each MM PRN PRN PRN Reason: SORE THROAT Last Admin: 05/31/17 06:27 Dose: 1 each Chlorhexidine Gluconate (Hibiclens For Decolonization -) 1 applic TP HS IGOR Heparin Sodium (Porcine) (Heparin -) 5,000 unit SQ TID IGOR Dextrose/Sodium Chloride (Dextrose 5%-Normal Saline+20 Meq Kcl -) 20 meq in 1, 000 mls @ 125 mls/hr IV ASDIR IGOR Last Admin: 05/31/17 09:57 Dose: 125 mls/hr Insulin Human Regular 100 (units/ Sodium Chloride) 100 mls @ 1.63 mls/hr IVPB TITR IGOR; 0.03 UNITS/KG/HR PRN Reason: Protocol Methimazole (Tapazole -) 10 mg PO DAILY [facility] Mupirocin (Bactroban Ointment (For Decolonization) -) 1 applic NS BID [facility] Stop: 06/05/17 09:59 Ondansetron HCl (Zofran Injection) 4 mg IVPUSH Q6H PRN PRN Reason: NAUSEA GENERAL: Awake, alert, and fully oriented, in no acute distress. EYES: sclera anicteric, conjunctiva clear. EARS, NOSE, THROAT: Dry mucous membranes. NECK: Normal range of motion, supple without lymphadenopathy LUNGS: Breath sounds equal, clear to auscultation bilaterally. No wheezes, and no crackles. No accessory muscle use. HEART: Regular rate and rhythm, normal S1 and S2 without murmur ABDOMEN: Soft, nontender, not distended, normoactive bowel sounds MUSCULOSKELETAL: No CVA tenderness. LOWER EXTREMITIES: 2+ pulses, warm, well-perfused. No peripheral edema. NEUROLOGICAL: Non-focal PSYCHIATRIC: Cooperative. Good eye contact. Appropriate mood and affect. SKIN: Warm, dry Laboratory Results - last 24 hr 05/31/17 05/31/17 05/31/17 04:31 04:31 04:31 WBC 17.4 H D RBC 4.39 Hgb 12.9 Hct 38.5 MCV 87.7 MCH 29.4 D MCHC 33.5 RDW 13.7 Plt Count 298 D MPV 8.1 Neutrophils % 82.5 D Lymphocytes % 12.4 D Monocytes % 5.0 Eosinophils % 0.0 Basophils % 0.1 VBG pH POC VBG pCO2 POC VBG pO2 Mixed VBG HCO3 Sodium 134 L Potassium 4.5 Chloride 101 Carbon Dioxide 15 L Anion Gap 18 H BUN 14 Creatinine 1.0 Creat Clearance w eGFR > 60 POC Glucometer Random Glucose 427 H* Lactic Acid Calcium 9.3 Phosphorus Magnesium 2.0 Total Bilirubin 1.1 H D AST 15 ALT 16 Alkaline Phosphatase 80 Creatine Kinase Total Protein 7.8 Albumin 4.3 Lipase Serum , Qual Negative Urine Color Urine Appearance Urine pH Ur Specific [place] Urine Protein Urine Glucose (UA) Urine Ketones Urine Blood Urine Nitrite Urine Bilirubin Urine Urobilinogen Ur Leukocyte Esterase Opiates Screen Methadone Screen Barbiturate Screen Phencyclidine Screen Ur Amphetamines Screen MDMA (Ecstasy) Screen Benzodiazepines Screen Cocaine Screen U Marijuana (THC) Screen Acetone, Qual Positive large 3+ H 05/31/17 05/31/17 05/31/17 04:31 04:31 05:20 WBC RBC Hgb Hct MCV MCH MCHC RDW Plt Count MPV Neutrophils % Lymphocytes % Monocytes % Eosinophils % Basophils % VBG pH POC VBG pCO2 POC VBG pO2 Mixed VBG HCO3 Sodium Potassium Chloride Carbon Dioxide Anion Gap BUN Creatinine Creat Clearance w eGFR POC Glucometer Random Glucose Lactic Acid 2.8 H* Calcium Phosphorus Magnesium Total Bilirubin AST ALT Alkaline Phosphatase Creatine Kinase Total Protein Albumin Lipase 40 L Serum , Qual Urine Color Straw Urine Appearance Clear Urine pH 5.0 D Ur Specific [place] 1.022 Urine Protein Negative Urine Glucose (UA) 3+ H Urine Ketones 2+ H Urine Blood Negative Urine Nitrite Negative Urine Bilirubin Negative Urine Urobilinogen Negative Ur Leukocyte Esterase Negative Opiates Screen Methadone Screen Barbiturate Screen Phencyclidine Screen Ur Amphetamines Screen MDMA (Ecstasy) Screen Benzodiazepines Screen Cocaine Screen U Marijuana (THC) Screen Acetone, Qual 05/31/17 05/31/17 05/31/17 05:20 05:52 06:10 WBC RBC Hgb Hct MCV MCH MCHC RDW Plt Count MPV Neutrophils % Lymphocytes % Monocytes % Eosinophils % Basophils % VBG pH 7.27 L POC VBG pCO2 34.5 L D POC VBG pO2 49.9 H D Mixed VBG HCO3 15.5 L Sodium Potassium Chloride Carbon Dioxide Anion Gap BUN Creatinine Creat Clearance w eGFR POC Glucometer Random Glucose Lactic Acid 1.7 Calcium Phosphorus Magnesium Total Bilirubin AST ALT Alkaline Phosphatase Creatine Kinase Total Protein Albumin Lipase Serum , Qual Urine Color Urine Appearance Urine pH Ur Specific [place] Urine Protein Urine Glucose (UA) Urine Ketones Urine Blood Urine Nitrite Urine Bilirubin Urine Urobilinogen Ur Leukocyte Esterase Opiates Screen Negative Methadone Screen Negative Barbiturate Screen Negative Phencyclidine Screen Negative Ur Amphetamines Screen Negative MDMA (Ecstasy) Screen Negative Benzodiazepines Screen Negative Cocaine Screen Negative U Marijuana (THC) Screen Positive Acetone, Qual 05/31/17 05/31/17 05/31/17 06:40 08:29 09:40 WBC RBC Hgb Hct MCV MCH MCHC RDW Plt Count MPV Neutrophils % Lymphocytes % Monocytes % Eosinophils % Basophils % VBG pH POC VBG pCO2 POC VBG pO2 Mixed VBG HCO3 Sodium 138 Potassium 3.7 Chloride 111 H Carbon Dioxide 22 Anion Gap 5 L BUN 11 Creatinine 0.7 Creat Clearance w eGFR POC Glucometer [phone] Random Glucose 96 Lactic Acid Calcium 7.7 L Phosphorus Magnesium Total Bilirubin AST ALT Alkaline Phosphatase Creatine Kinase Total Protein Albumin Lipase Serum , Qual Urine Color Urine Appearance Urine pH Ur Specific [place] Urine Protein Urine Glucose (UA) Urine Ketones Urine Blood Urine Nitrite Urine Bilirubin Urine Urobilinogen Ur Leukocyte Esterase Opiates Screen Methadone Screen Barbiturate Screen Phencyclidine Screen Ur Amphetamines Screen MDMA (Ecstasy) Screen Benzodiazepines Screen Cocaine Screen U Marijuana (THC) Screen Acetone, Qual 05/31/17 05/31/17 05/31/17 09:40 09:40 10:03 WBC RBC Hgb Hct MCV MCH MCHC RDW Plt Count MPV Neutrophils % Lymphocytes % Monocytes % Eosinophils % Basophils % VBG pH POC VBG pCO2 POC VBG pO2 Mixed VBG HCO3 Sodium 139 Potassium 3.7 Chloride 109 H Carbon Dioxide 21 Anion Gap 9 BUN 10 Creatinine 0.7 Creat Clearance w eGFR POC Glucometer [phone] Random Glucose 98 Lactic Acid 1.0 Calcium 7.9 L Phosphorus 1.4 L Magnesium 2.0 Total Bilirubin AST ALT Alkaline Phosphatase Creatine Kinase 96 Total Protein Albumin Lipase Serum , Qual Urine Color Urine Appearance Urine pH Ur Specific [place] Urine Protein Urine Glucose (UA) Urine Ketones Urine Blood Urine Nitrite Urine Bilirubin Urine Urobilinogen Ur Leukocyte Esterase Opiates Screen Methadone Screen Barbiturate Screen Phencyclidine Screen Ur Amphetamines Screen MDMA (Ecstasy) Screen Benzodiazepines Screen Cocaine Screen U Marijuana (THC) Screen Acetone, Qual ASSESSMENT/PLAN: Resolved DKA DM type 1 Hyperthyroidism Leukocytosis Patient has insulin pump and will contact her Endocrine MD PO as tolerated OOB to chair Dr Pitt
[2017-05-31 12:41] LABS: ANION GAP 7 (8-16); BLOOD UREA NITROGEN 10 mg/dL (7-18); CHLORIDE 109 mmol/L (98-107); CO2 23 mmol/L (21-32); CREATININE 0.8 mg/dL (0.55-1.02); GLUCOSE,RANDOM 146 mg/dL (74-106); POTASSIUM 4.1 mmol/L (3.5-5.1); SODIUM 139 mmol/L (136-145)
--- NOTE | 2017-05-31 13:03 | CONSULT ---
Consult Consult Specialty:: Endocrinology Referred by:: Dr Sanon Reason for Consultation:: DKA - History of Present Illness Chief Complaint: Abd Pain History of Present Illness: This is a 31 y/o F with h/o T1DM, on Insulin pump for a year, hyperthyroidism who presented to the ER with abd pain, nausea, vomiting, chills (x3, non bloody ) since this morning. Pt had noted that her BGMs at home have been elevated for the last 2-3 days. Highest up to 600. Checked blood sugar 6-7 times per day and was taking boluses via Insulin pump. Had polyuria during this time. Occasional blurred vision and numbness of feet. Saw ophthalmology about a year ago. Denies any fever, chills, dysuria, respiratory symptoms.. She was recently discharged approx 2 weeks ago from [facility] for DKA and states she's had DKA multiple times in the past. Had two DKAs since starting on the Pump. She was getting hypoglycemic around once every week during the night so the basal Insulin rate was decreased to 0.35 and 0.45 per hr from around 0.8 units/hr about 2 weeks ago. She hasn't been hypoglycemic since then. She has sick contacts with her father who has cold symptoms and also notes scratches from her kitten (6 months old, not up to date on immunizations) and pet rats. She also reports drinking beer and liquor the night before she noted her sugars being elevated (approximately had 4 drinks). - History Source History Provided By: Patient, Medical Record - Past Medical History ...LMP: 12/03/14 Endocrine: Yes: Diabetes Mellitus, Hyperthyroidism - Alcohol/Substance Use Hx Alcohol Use: Yes (SOCIAL) - Smoking History Smoking history: Former smoker Have you smoked in the past 12 months: Yes Home Medications - Allergies Allergies/Adverse Reactions: Allergies Allergy/AdvReac Type Severity Reaction Status Date / Time No Known Drug Allergies Allergy Verified 05/31/17 04:21 - Home Medications Home Medications: Ambulatory Orders Insulin Aspart [Novolog Flexpen] 0 unit SQ ASDIR 10/31/14 Acetaminophen/Caffeine/Butalb [Fioricet -] 1 - 2 tab PO Q6H PRN #28 tablet MDD 6 tabs 03/06/16 Methimazole [Tapazole] 10 mg PO DAILY 03/06/16 Family Disease History - Family Disease History Other Family History: Uncle has Type 2 DM Review of Systems - Review of Systems Constitutional: reports: No Symptoms Eyes: reports: No Symptoms HENT: reports: No Symptoms Neck: reports: No Symptoms Cardiovascular: reports: No Symptoms Respiratory: reports: No Symptoms Gastrointestinal: reports: No Symptoms Genitourinary: reports: No Symptoms Musculoskeletal: reports: No Symptoms Integumentary: reports: No Symptoms Neurological: reports: No Symptoms Endocrine: reports: No Symptoms Hematology/Lymphatic: reports: No Symptoms Physical Exam Vital Signs: Vital Signs Temperature 98.6 F 05/31/17 08:30 Pulse Rate 82 05/31/17 10:00 Respiratory Rate 16 05/31/17 10:00 Blood Pressure 93/46 05/31/17 10:00 O2 Sat by Pulse Oximetry (%) 100 05/31/17 09:00 Constitutional: Yes: No Distress, Calm Eyes: Yes: Conjunctiva Clear, EOM Intact HENT: Yes: Atraumatic, Normocephalic Neck: Yes: Supple, Trachea Midline Cardiovascular: Yes: Regular Rate and Rhythm Respiratory: Yes: Regular, CTA Bilaterally Gastrointestinal: Yes: Normal Bowel Sounds, Soft Musculoskeletal: Yes: WNL Extremities: Yes: WNL Edema: No Neurological: Yes: Alert, Oriented Labs: CBC, BMP 05/31/17 04:31 05/31/17 12:00 Assessment/Plan AP: DKA: Resolved Off insulin drip D/C IVF Restart Insulin pump Pump setting reviewed: Basal: 12Mn 0.35, 5AM 0.45 10PM 0.35 Boluses: CHO Ratio 1:12 Sensitivity 1:50 BGM Q 2hrs CMP at 6 PM and in the morning If acidosis develops on the pump will need to start basal bolus regimen before discharge Hyperthyroidism: Will f/u
[2017-05-31] MEDS: METHIMAZOLE 10 MG TABLET (FP) PO SCH (13:46)
[2017-05-31] MEDS: MUPIROCIN 2% TOPICAL OINTMENT FOR DECOLONIZATION NS SCH ×2 (15:04→21:24)
[2017-05-31] MEDS: HEPARIN NA (PORCINE) 5,000 UNITS/ML 1ML VIAL SQ SCH ×2 (15:06→21:22)
[2017-05-31] MEDS ORDERED: Insulin (LOG) Aspart 100 UNITS/ML VIAL SQ ONE (17:15)
[2017-05-31] MEDS ORDERED: INSULIN DETEMIR 100 UNITS/ML MDV SQ ONE (17:15)
[2017-05-31] MEDS: SODIUM CHLORIDE 1,000 ML IV SCH (19:18)
[2017-05-31 20:52] LABS: ALBUMIN 3.1 g/dl (3.4-5.0); ALK PHOS 58 U/L (45-117); ANION GAP 6 (8-16); BILIRUBIN,TOTAL 0.5 mg/dL (0.2-1.0); BLOOD UREA NITROGEN 12 mg/dL (7-18); CALCIUM 8.2 mg/dL (8.5-10.1); CHLORIDE 105 mmol/L (98-107); CO2 25 mmol/L (21-32); POTASSIUM 4.1 mmol/L (3.5-5.1); SGOT/AST 10 U/L (15-37); SGPT/ALT 18 U/L (12-78); SODIUM 136 mmol/L (136-145); TOT PROT 6.1 g/dl (6.4-8.2)
[2017-05-31 20:53] LABS: GLUCOSE,RANDOM 327 mg/dL (74-106)
[2017-05-31] MEDS: INSULIN SLIDING SCALE (NOVOLOG) 1 VIAL SQ SCH (21:42)
[2017-05-31] MEDS ORDERED: CHLORHEXIDINE GLUCONATE 4% CLEANSER FOR DECOLONIZATION TP SCH (22:00)
[2017-06-01] MEDS: HEPARIN NA (PORCINE) 5,000 UNITS/ML 1ML VIAL SQ SCH ×3 (05:59→22:35)
[2017-06-01] MEDS: INSULIN SLIDING SCALE (NOVOLOG) 1 VIAL SQ SCH ×3 (06:00→17:29)
[2017-06-01 06:34] LABS: BASO % 0.1 % (0-2.0); EOS % 0.1 % (0-4.5); HEMATOCRIT 30.4 % (32.4-45.2); HEMOGLOBIN 10.7 GM/dL (10.7-15.3); MCH 30.2 pg (25.7-33.7); MCHC 35.2 g/dl (32.0-36.0); MEAN CELL VOLUME 85.9 fl (80-96); MEAN PLT VOLUME 8.1 fl (7.5-11.1); MONO % 4.7 % (3.8-10.2); NEUT % 44.1 % (42.8-82.8); PLATELET COUNT 236 K/MM3 (134-434); RBC 3.54 M/mm3 (3.60-5.2); RDW 13.5 % (11.6-15.6); WHITE BLOOD COUNT 7.1 K/mm3 (4.0-10.0)
[2017-06-01 06:58] LABS: CALCIUM 7.7 mg/dL (8.5-10.1); CHLORIDE 110 mmol/L (98-107); SODIUM 142 mmol/L (136-145)
[2017-06-01 07:04] LABS: ALK PHOS 48 U/L (45-117); ANION GAP 9 (8-16); BILIRUBIN,TOTAL 0.4 mg/dL (0.2-1.0); BLOOD UREA NITROGEN 6 mg/dL (7-18); CO2 23 mmol/L (21-32); CREATININE 0.7 mg/dL (0.55-1.02); MAGNESIUM 1.8 mg/dL (1.8-2.4); PHOSPHOROUS 3.6 mg/dL (2.5-4.9); SGOT/AST 11 U/L (15-37); SGPT/ALT 11 U/L (12-78); TOT PROT 5.7 g/dl (6.4-8.2)
[2017-06-01 07:43] LABS: GLUCOSE,RANDOM 49 mg/dL (74-106)
[2017-06-01] MEDS: METHIMAZOLE 10 MG TABLET (FP) PO SCH (09:16)
[2017-06-01] MEDS: MUPIROCIN 2% TOPICAL OINTMENT FOR DECOLONIZATION NS SCH (09:16)
[2017-06-01] MEDS: SODIUM CHLORIDE 1,000 ML IV SCH (09:17)
--- NOTE | 2017-06-01 09:38 | PN ---
Progress Note (short form) - Note Progress Note: PULMONARY/CCM Pt seen and examined in the ICU. Feels well. Hypoglycemic on BMP this AM but asymptomatic. Last BGM high. No further nausea or vomiting. No abdominal pain. Last Vital Signs Temp Pulse Resp BP Pulse Ox 98.3 F 69 18 100/52 100 06/01/17 06:00 06/01/17 06:00 06/01/17 06:00 06/01/17 06:00 05/31/17 20:21 Intake & Output 05/29/17 05/30/17 05/31/17 06/01/17 23:59 23:59 23:59 23:59 Intake Total 3000 1800 Balance 3000 1800 Weight 55.792 kg 56.331 kg Gen: NAD at rest Heart: RRR Lung: decreased breath sounds at the bases Abd: soft, nontender Ext: no edema CBC, [facility] 06/01/17 05:25 06/01/17 05:25 Active Medications Benzocaine/Menthol (Cepacol Lozenge -) 1 each MM PRN PRN PRN Reason: SORE THROAT Last Admin: 05/31/17 06:27 Dose: 1 each Chlorhexidine Gluconate (Hibiclens For Decolonization -) 1 applic TP HS [facility] Last Admin: 05/31/17 21:22 Dose: 1 applic Heparin Sodium (Porcine) (Heparin -) 5,000 unit SQ TID [facility] Last Admin: 06/01/17 05:59 Dose: 5,000 unit Sodium Chloride (Normal Saline -) 1,000 mls @ 150 mls/hr IV ASDIR [facility] Last Admin: 06/01/17 09:17 Dose: 150 mls/hr Insulin Aspart (Novolog Vial Sliding Scale -) 1 vial SQ ACHS IGOR PRN Reason: Protocol Last Admin: 06/01/17 06:00 Dose: Not Given Methimazole (Tapazole -) 10 mg PO DAILY [facility] Last Admin: 06/01/17 09:16 Dose: 10 mg Mupirocin (Bactroban Ointment (For Decolonization) -) 1 applic NS BID [facility] Stop: 06/05/17 09:59 Last Admin: 06/01/17 09:16 Dose: 1 applic Ondansetron HCl (Zofran Injection) 4 mg IVPUSH Q6H PRN PRN Reason: NAUSEA Last Admin: 05/31/17 15:06 Dose: 4 mg A/P Diabetic Ketoacidosis resolved Hyperthyroidism - glucose control - can decrease IVF - PO as tolerated - DVT prophylaxis - can monitor on floor
--- NOTE | 2017-06-01 11:56 | PN ---
Progress Note (short form) - Note Progress Note: Feels good Denies any complaints No abd pain, No N/V Had symptomatic hypoglycemia in the morning with blood glucose of 49 in SMA Pt says she is usually symptomatic when the FS is around 80 but has had epsodes of hypoglycemia at home she had to we woken up by family members. Vital Signs Period Temp Pulse Resp BP Sys/Leone Pulse Ox Last 24 Hr 98 F-98.6 F 67-88 16-20 85-110/48-64 100 PE: AOx3 Neck: Supple, No JVD HEENT: PERRL, EOMI Lungs: CTA CVS: S1S2 reg Abd: Benign Ext: No edema Neuro: No focal deficit CMP Sodium 142 mmol/L (136-145) 06/01/17 05:25 Potassium 4.0 mmol/L (3.5-5.1) 06/01/17 05:25 Chloride 110 mmol/L (98-107) H 06/01/17 05:25 Carbon Dioxide 23 mmol/L (21-32) 06/01/17 05:25 Anion Gap 9 (8-16) 06/01/17 05:25 BUN 6 mg/dL (7-18) L 06/01/17 05:25 Creatinine 0.7 mg/dL (0.55-1.02) 06/01/17 05:25 Creat Clearance w eGFR > 60 (>60) 06/01/17 05:25 POC Glucometer > 400 UNITS (80-120) 05/31/17 18:18 Random Glucose 49 mg/dL (74-106) L* 06/01/17 05:25 Hemoglobin A1c % 8.5 % (4.8-6.0) H 06/01/17 05:25 Lactic Acid 1.0 mmol/L (0.0-2.0) 05/31/17 09:40 Calcium 7.7 mg/dL (8.5-10.1) L 06/01/17 05:25 Phosphorus 3.6 mg/dL (2.5-4.9) 06/01/17 05:25 Magnesium 1.8 mg/dL (1.8-2.4) 06/01/17 05:25 Total Bilirubin 0.4 mg/dL (0.2-1.0) 06/01/17 05:25 AST 11 U/L (15-37) L 06/01/17 05:25 ALT 11 U/L (12-78) L 06/01/17 05:25 Alkaline Phosphatase 48 U/L (45-117) 06/01/17 05:25 Creatine Kinase 96 IU/L (26-192) 05/31/17 09:40 Total Protein 5.7 g/dl (6.4-8.2) L 06/01/17 05:25 Albumin 3.0 g/dl (3.4-5.0) L 06/01/17 05:25 Lipase 40 U/L (73-393) L 05/31/17 04:31 Serum , Qual Negative 05/31/17 04:31 Current Medications Generic Name Dose Route Start Last Admin Trade Name Freq PRN Reason Stop Dose Admin Benzocaine/Menthol 1 each 05/31/17 05:47 05/31/17 06:27 Cepacol Lozenge - MM 1 each PRN PRN Administration SORE THROAT Chlorhexidine Gluconate 1 applic 05/31/17 22:00 05/31/17 21:22 Hibiclens For Decolonization - TP 1 applic HS IGOR Administration Heparin Sodium (Porcine) 5,000 unit 05/31/17 14:00 06/01/17 05:59 Heparin - SQ 5,000 unit TID IGOR Administration Sodium Chloride 1,000 mls @ 150 mls/hr 05/31/17 18:45 06/01/17 09:17 Normal Saline - IV 150 mls/hr ASDIR IGOR Administration Insulin Aspart 1 vial 05/31/17 22:00 06/01/17 11:00 Novolog Vial Sliding Scale - SQ 6 units ACHS IGOR Administration Protocol Methimazole 10 mg 05/31/17 10:00 06/01/17 09:16 Tapazole - PO 10 mg DAILY IGOR Administration Mupirocin 1 applic 05/31/17 10:00 06/01/17 09:16 Bactroban Ointment (For Decolonization) - NS 06/05/17 09:59 1 applic BID IGOR Administration Ondansetron HCl 4 mg 05/31/17 08:48 05/31/17 15:06 Zofran Injection IVPUSH 4 mg Q6H PRN Administration NAUSEA AP: T1DM S/P DKA Hyperthyroidism BGM QACHS and 3 AM Continue Levemir 8 units daily at HS Change Novolog SS coverage Diet exercise discussed Discussed need for moderation in intake of Alcohol, to limit to one drink at the most in a day. Nutrition consult: wants to learn how to do Carb counting.
[2017-06-01] MEDS ORDERED: INSULIN SLIDING SCALE (NOVOLOG) 1 VIAL SQ SCH (11:59)
[2017-06-01] MEDS ORDERED: Insulin (LOG) Aspart 100 UNITS/ML VIAL SQ ONE (12:30)
[2017-06-01] MEDS ORDERED: BENZOCAINE/MENTH/CETYLPYRD CL 1 EACH LOZENGE MM PRN (15:57)
[2017-06-01] MEDS ORDERED: ONDANSETRON 4 MG/2 ML VIAL IVPUSH PRN (15:57)
[2017-06-01] MEDS ORDERED: SODIUM CHLORIDE 1,000 ML IV SCH (16:15)
--- NOTE | 2017-06-01 19:30 | PN ---
Physical Exam: SUBJECTIVE: Patient seen and examined Patient is feeling better with no acute distress. No nausea or vomiting. OBJECTIVE: Vital Signs Temperature 98.2 F 06/01/17 18:46 Pulse Rate 69 06/01/17 18:46 Respiratory Rate 18 06/01/17 18:46 Blood Pressure 126/71 06/01/17 18:46 O2 Sat by Pulse Oximetry (%) 100 06/01/17 09:00 GENERAL: The patient is awake, alert, and fully oriented, in no acute distress. HEAD: Normal with no signs of trauma. EYES: PERRL, extraocular movements intact, sclera anicteric, conjunctiva clear. No ptosis. ENT: Ears normal, nares patent, oropharynx clear without exudates, moist mucous membranes. NECK: Trachea midline, full range of motion, supple. LUNGS: Breath sounds equal, clear to auscultation bilaterally, no wheezes, no crackles, no accessory muscle use. HEART: Regular rate and rhythm, S1, S2 without murmur, rub or gallop. ABDOMEN: Soft, nontender, nondistended, normoactive bowel sounds, no guarding, no rebound, no hepatosplenomegaly, no masses. EXTREMITIES: 2+ pulses, warm, well-perfused, no edema. NEUROLOGICAL: Cranial nerves II through XII grossly intact. Normal speech, gait not observed. PSYCH: Normal mood, normal affect. SKIN: Warm, dry, normal turgor, no rashes or lesions noted CBCD WBC 7.1 K/mm3 (4.0-10.0) D 06/01/17 05:25 RBC 3.54 M/mm3 (3.60-5.2) L 06/01/17 05:25 Hgb 10.7 GM/dL (10.7-15.3) D 06/01/17 05:25 Hct 30.4 % (32.4-45.2) L D 06/01/17 05:25 MCV 85.9 fl (80-96) 06/01/17 05:25 MCHC 35.2 g/dl (32.0-36.0) 06/01/17 05:25 RDW 13.5 % (11.6-15.6) 06/01/17 05:25 Plt Count 236 K/MM3 (134-434) D 06/01/17 05:25 MPV 8.1 fl (7.5-11.1) 06/01/17 05:25 CMP Sodium 142 mmol/L (136-145) 06/01/17 05:25 Potassium 4.0 mmol/L (3.5-5.1) 06/01/17 05:25 Chloride 110 mmol/L (98-107) H 06/01/17 05:25 Carbon Dioxide 23 mmol/L (21-32) 06/01/17 05:25 Anion Gap 9 (8-16) 06/01/17 05:25 BUN 6 mg/dL (7-18) L 06/01/17 05:25 Creatinine 0.7 mg/dL (0.55-1.02) 06/01/17 05:25 Creat Clearance w eGFR > 60 (>60) 06/01/17 05:25 Random Glucose 49 mg/dL (74-106) L* 06/01/17 05:25 Calcium 7.7 mg/dL (8.5-10.1) L 06/01/17 05:25 Total Bilirubin 0.4 mg/dL (0.2-1.0) 06/01/17 05:25 AST 11 U/L (15-37) L 06/01/17 05:25 ALT 11 U/L (12-78) L 06/01/17 05:25 Alkaline Phosphatase 48 U/L (45-117) 06/01/17 05:25 Total Protein 5.7 g/dl (6.4-8.2) L 06/01/17 05:25 Albumin 3.0 g/dl (3.4-5.0) L 06/01/17 05:25 CARDIAC ENZYMES Creatine Kinase 96 IU/L (26-192) 05/31/17 09:40 Generic Name Dose Route Start Last Admin Trade Name Freq PRN Reason Stop Dose Admin Benzocaine/Menthol 1 each 06/01/17 15:57 Cepacol Lozenge - MM DAILY PRN SORE THROAT Heparin Sodium (Porcine) 5,000 unit 06/01/17 22:00 Heparin - SQ TID IGOR Sodium Chloride 1,000 mls @ 50 mls/hr 06/01/17 16:15 06/01/17 15:00 Normal Saline - IV 50 mls/hr ASDIR IGOR Administration Insulin Aspart 0 units 06/01/17 22:00 Novolog SQ HS IGOR Protocol Insulin Aspart 1 vial 06/01/17 12:01 06/01/17 17:29 Novolog Vial Sliding Scale - SQ 7 units TIDAC IGOR Administration Protocol Insulin Detemir 8 units 06/01/17 22:00 Levemir Vial SQ HS IGOR Methimazole 10 mg 06/02/17 10:00 Tapazole - PO DAILY IGOR Ondansetron HCl 4 mg 06/01/17 15:57 Zofran Injection IVPUSH Q6H PRN NAUSEA Home Medications Medication Instructions Recorded Insulin Aspart [Novolog Flexpen] 0 unit SQ ASDIR 10/31/14 Acetaminophen/Caffeine/Butalb 1 - 2 tab PO Q6H PRN #28 tablet 03/06/16 [Fioricet -] MDD 6 tabs Methimazole [Tapazole] 10 mg PO DAILY 03/06/16 ASSESSMENT/PLAN: 31 y/o F w/PMH of DM type 1, hyperthyroidism presents to the ER with abd pain, nausea, vomiting, chills since this morning. Admitted for DKA. # Acute DKA gap is closed now, patient is comfortable, is on the case. if stable will send her out in am. # Acute Leukocytosis improved cultures are negative. #Hyperthyroidism continue methimazole DVT ppx: Heparin 5000 units sq q8h Visit type - Emergency Visit Emergency Visit: Yes ED Registration Date: 05/31/17 Care time: The patient presented to the Emergency Department on the above date and was hospitalized for further evaluation of their emergent condition. - New Patient This patient is new to me today: No - Critical Care Critical Care patient: No - Discharge Referral Referred to [facility] Med P.C.: No
[2017-06-01] MEDS ORDERED: INSULIN DETEMIR 100 UNITS/ML MDV SQ SCH (22:00)
[2017-06-01] MEDS ORDERED: Insulin (LOG) Aspart 100 UNITS/ML VIAL SQ SCH (22:00)
[2017-06-02 00:01] VITALS: TEMP 98
[2017-06-02] MEDS: HEPARIN NA (PORCINE) 5,000 UNITS/ML 1ML VIAL SQ SCH ×2 (06:45→14:41)
[2017-06-02] MEDS: INSULIN SLIDING SCALE (NOVOLOG) 1 VIAL SQ SCH ×2 (06:45→12:14)
[2017-06-02] MEDS ORDERED: INSULIN (NOVOLOG MIX 70/30) 100 UNITS/ML MDV SQ ONE (07:06)
[2017-06-02] MEDS ORDERED: INSULIN (NOVOLOG) ASPART 100 UNITS/ML 10ML VIAL ONE ×2 (07:06→11:44)
[2017-06-02] MEDS ORDERED: INSULIN DETEMIR 100 UNITS/ML MDV SQ ONE (07:06)
[2017-06-02 08:18] LABS: EOS % 0.1 % (0-4.5); HEMOGLOBIN 11.5 GM/dL (10.7-15.3); LYMPH % 58.7 % (8-40); MCH 29.2 pg (25.7-33.7); MCHC 33.8 g/dl (32.0-36.0); MEAN CELL VOLUME 86.5 fl (80-96); MEAN PLT VOLUME 7.8 fl (7.5-11.1); MONO % 5.9 % (3.8-10.2); NEUT % 35.3 % (42.8-82.8); PLATELET COUNT 229 K/MM3 (134-434); RBC 3.93 M/mm3 (3.60-5.2); RDW 13.5 % (11.6-15.6); WHITE BLOOD COUNT 5.5 K/mm3 (4.0-10.0)
[2017-06-02 09:17] LABS: ANION GAP 6 (8-16); BLOOD UREA NITROGEN 6 mg/dL (7-18); CALCIUM 8.4 mg/dL (8.5-10.1); CHLORIDE 107 mmol/L (98-107); CO2 27 mmol/L (21-32); CREATININE 0.6 mg/dL (0.55-1.02); GLUCOSE,RANDOM 103 mg/dL (74-106); MAGNESIUM 1.8 mg/dL (1.8-2.4); PHOSPHOROUS 3.1 mg/dL (2.5-4.9); POTASSIUM 3.8 mmol/L (3.5-5.1); SODIUM 140 mmol/L (136-145)
[2017-06-02] MEDS ORDERED: METHIMAZOLE 10 MG TABLET (FP) PO SCH (10:00)
[2017-06-02] MEDS ORDERED: PT OWN MED DRAWER 7, Y5N ONE (11:03)
--- NOTE | 2017-06-02 11:18 | PN ---
Progress Note (short form) - Note Progress Note: Feels good Denies any complaints Had juice during the night as FS was 112 Vital Signs Period Temp Pulse Resp BP Sys/Leone Pulse Ox Last 24 Hr 98.0 F-98.3 F 58-90 -18 105-128/55-80 100 PE: AOx3 Neck: Supple, No JVD HEENT: PERRL, EOMI Lungs: CTA CVS: S1S2 reg Abd: Benign Ext: No edema Neuro: No focal deficit CMP Sodium 140 mmol/L (136-145) 06/02/17 07:15 Potassium 3.8 mmol/L (3.5-5.1) 06/02/17 07:15 Chloride 107 mmol/L (98-107) 06/02/17 07:15 Carbon Dioxide 27 mmol/L (21-32) 06/02/17 07:15 Anion Gap 6 (8-16) L 06/02/17 07:15 BUN 6 mg/dL (7-18) L 06/02/17 07:15 Creatinine 0.6 mg/dL (0.55-1.02) 06/02/17 07:15 Creat Clearance w eGFR > 60 (>60) 06/01/17 05:25 POC Glucometer 252 UNITS (80-120) 06/02/17 10:12 Random Glucose 103 mg/dL (74-106) 06/02/17 07:15 Hemoglobin A1c % 8.5 % (4.8-6.0) H 06/01/17 05:25 Lactic Acid 1.0 mmol/L (0.0-2.0) 05/31/17 09:40 Calcium 8.4 mg/dL (8.5-10.1) L 06/02/17 07:15 Phosphorus 3.1 mg/dL (2.5-4.9) 06/02/17 07:15 Magnesium 1.8 mg/dL (1.8-2.4) 06/02/17 07:15 Total Bilirubin 0.4 mg/dL (0.2-1.0) 06/01/17 05:25 AST 11 U/L (15-37) L 06/01/17 05:25 ALT 11 U/L (12-78) L 06/01/17 05:25 Alkaline Phosphatase 48 U/L (45-117) 06/01/17 05:25 Creatine Kinase 96 IU/L (26-192) 05/31/17 09:40 Total Protein 5.7 g/dl (6.4-8.2) L 06/01/17 05:25 Albumin 3.0 g/dl (3.4-5.0) L 06/01/17 05:25 Lipase 40 U/L (73-393) L 05/31/17 04:31 Serum , Qual Negative 05/31/17 04:31 Current Medications Generic Name Dose Route Start Last Admin Trade Name Freq PRN Reason Stop Dose Admin Benzocaine/Menthol 1 each 06/01/17 15:57 Cepacol Lozenge - MM DAILY PRN SORE THROAT Heparin Sodium (Porcine) 5,000 unit 06/01/17 22:00 06/02/17 06:45 Heparin - SQ 5,000 unit TID IGOR Administration Sodium Chloride 1,000 mls @ 50 mls/hr 06/01/17 16:15 06/01/17 15:00 Normal Saline - IV 50 mls/hr ASDIR IGOR Administration Insulin Aspart 0 units 06/01/17 22:00 06/01/17 22:34 Novolog SQ 4 units HS IGOR Administration Protocol Insulin Aspart 1 vial 06/01/17 12:01 06/02/17 06:45 Novolog Vial Sliding Scale - SQ 3 units TIDAC IGOR Administration Protocol Insulin Detemir 8 units 06/01/17 22:00 06/01/17 22:35 Levemir Vial SQ 8 units HS IGOR Administration Methimazole 10 mg 06/02/17 10:00 06/02/17 11:06 Tapazole - PO 10 mg DAILY IGOR Administration Ondansetron HCl 4 mg 06/01/17 15:57 Zofran Injection IVPUSH Q6H PRN NAUSEA AP: T1DM S/P DKA Hyperthyroidism BGM QACHS and 3 AM Decrease Levemir 7 units daily at HS Continue current Novolog SS coverage Discussed with pt need to eat within 15 minutes of taking Novolog to avoid hypoglycemia. Pt verbalizes understanding. Diet exercise discussed Discussed need for moderation in intake of Alcohol, to limit to one drink at the most in a day. Pt to continue current Insulin regimen until she follows up with her [employer] to decide about the Insulin Pump. Nutrition consult: wants to learn how to do Carb counting.
[2017-06-02 15:20] VITALS: BP 129/78; PULSE 82
--- NOTE | 2017-06-02 19:04 | DS ---
Physical Exam: SUBJECTIVE: Patient seen and examined at bedside. Patient states she feels better today. No events overnight. OBJECTIVE: Vital Signs Period Temp Pulse Resp BP Sys/Leone Pulse Ox Last 24 Hr 98.0 F-98.0 F 58-82 16-18 105-129/55-78 100-100 PHYSICAL EXAM GENERAL: The patient is awake, alert, and fully oriented, in no acute distress. HEAD: Normal with no signs of trauma. NECK: Trachea midline, full range of motion, supple. LUNGS: Breath sounds equal, clear to auscultation bilaterally, no wheezes, no crackles, no accessory muscle use. HEART: Regular rate and rhythm, S1, S2 without murmur, rub or gallop. ABDOMEN: Soft, nontender, nondistended, normoactive bowel sounds, no guarding, no rebound, no hepatosplenomegaly, no masses. EXTREMITIES: 2+ pulses, warm, well-perfused, no edema. NEUROLOGICAL: Cranial nerves II through X grossly intact. Normal speech, gait not observed. PSYCH: Normal mood, normal affect. SKIN: Warm, dry, normal turgor, no rashes or lesions noted. LABS Laboratory Results - last 24 hr 05/31/17 05/31/17 06/01/17 20:10 21:41 05:31 WBC RBC Hgb Hct MCV MCH MCHC RDW Plt Count MPV Neutrophils % Lymphocytes % Monocytes % Eosinophils % Basophils % Sodium Potassium Chloride Carbon Dioxide Anion Gap BUN Creatinine POC Glucometer [phone] [phone] Random Glucose Calcium Phosphorus Magnesium 06/01/17 06/01/17 06/02/17 09:27 21:55 02:49 WBC RBC Hgb Hct MCV MCH MCHC RDW Plt Count MPV Neutrophils % Lymphocytes % Monocytes % Eosinophils % Basophils % Sodium Potassium Chloride Carbon Dioxide Anion Gap BUN Creatinine POC Glucometer > 400 334 112 Random Glucose Calcium Phosphorus Magnesium 06/02/17 06/02/17 06/02/17 05:29 07:15 07:15 WBC 5.5 RBC 3.93 Hgb 11.5 Hct 34.0 MCV 86.5 MCH 29.2 MCHC 33.8 RDW 13.5 Plt Count 229 MPV 7.8 Neutrophils % 35.3 L Lymphocytes % 58.7 H Monocytes % 5.9 Eosinophils % 0.1 Basophils % 0.0 Sodium 140 Potassium 3.8 Chloride 107 Carbon Dioxide 27 Anion Gap 6 L BUN 6 L Creatinine 0.6 POC Glucometer 199 Random Glucose 103 Calcium 8.4 L Phosphorus 3.1 Magnesium 1.8 06/02/17 06/02/17 10:12 11:40 WBC RBC Hgb Hct MCV MCH MCHC RDW Plt Count MPV Neutrophils % Lymphocytes % Monocytes % Eosinophils % Basophils % Sodium Potassium Chloride Carbon Dioxide Anion Gap BUN Creatinine POC Glucometer 252 329 Random Glucose Calcium Phosphorus Magnesium HOSPITAL COURSE: Date of Admission:05/31/17 The patient is a 31 y/o F w/PMH of DM type 1 and hyperthyroidism who presented to the ER with abd pain, nausea, vomiting, and chills for the day prior to admission. The patient stated that her blood sugars have been persistenly elevated despite the use of an insulin pump. In the ED, she was found to have a blood sugar of 427, a lactic acid of 1.7, an anion gap of 18 and 3+ ketones. The patient was admitted to the ICU for further treatment of DKA. Endocrinology was consulted. The patient was treated with an insulin drip, sliding scale insulin and long acting insulin during her stay. Her hospital course was complicated by episodes of morning hypoglycemia attributed to lack of eating after receiving her Novolog coverage. The patient improved clinically, her anion gap closed, her lactic acidosis resolved. She was discharged home on 7 units of Levemir nightly and a Novolog sliding scale. She was advised to discontinue using her insulin pump until seeing an core java software engineer. She was advised to eat after taking her Novolog coverage to avoid hypoglycemia. She was instructed to follow up with her primary care physician as well as an core java software engineer within one week of discharge home. Date of Discharge: 06/02/17 Minutes to complete discharge: 66 <Kenrick Tillman - Last Filed: 06/02/17 20:20> Physical Exam: Patient can go home, recommendations as Program Facilitator. Vital Signs Temperature 98.0 F 06/02/17 15:19 Pulse Rate 82 06/02/17 15:19 Respiratory Rate 18 06/02/17 15:19 Blood Pressure 129/78 06/02/17 15:19 O2 Sat by Pulse Oximetry (%) 100 06/02/17 09:00 CBCD WBC 5.5 K/mm3 (4.0-10.0) 06/02/17 07:15 RBC 3.93 M/mm3 (3.60-5.2) 06/02/17 07:15 Hgb 11.5 GM/dL (10.7-15.3) 06/02/17 07:15 Hct 34.0 % (32.4-45.2) 06/02/17 07:15 MCV 86.5 fl (80-96) 06/02/17 07:15 MCHC 33.8 g/dl (32.0-36.0) 06/02/17 07:15 RDW 13.5 % (11.6-15.6) 06/02/17 07:15 Plt Count 229 K/MM3 (134-434) 06/02/17 07:15 MPV 7.8 fl (7.5-11.1) 06/02/17 07:15 CMP Sodium 140 mmol/L (136-145) 06/02/17 07:15 Potassium 3.8 mmol/L (3.5-5.1) 06/02/17 07:15 Chloride 107 mmol/L (98-107) 06/02/17 07:15 Carbon Dioxide 27 mmol/L (21-32) 06/02/17 07:15 Anion Gap 6 (8-16) L 06/02/17 07:15 BUN 6 mg/dL (7-18) L 06/02/17 07:15 Creatinine 0.6 mg/dL (0.55-1.02) 06/02/17 07:15 Creat Clearance w eGFR > 60 (>60) 06/01/17 05:25 Random Glucose 103 mg/dL (74-106) 06/02/17 07:15 Calcium 8.4 mg/dL (8.5-10.1) L 06/02/17 07:15 Total Bilirubin 0.4 mg/dL (0.2-1.0) 06/01/17 05:25 AST 11 U/L (15-37) L 06/01/17 05:25 ALT 11 U/L (12-78) L 06/01/17 05:25 Alkaline Phosphatase 48 U/L (45-117) 06/01/17 05:25 Total Protein 5.7 g/dl (6.4-8.2) L 06/01/17 05:25 Albumin 3.0 g/dl (3.4-5.0) L 06/01/17 05:25 CARDIAC ENZYMES Creatine Kinase 96 IU/L (26-192) 05/31/17 09:40 Home Medications Medication Instructions Recorded Acetaminophen/Caffeine/Butalb 1 - 2 tab PO Q6H PRN #28 tablet 03/06/16 [Fioricet -] MDD 6 tabs Methimazole [Tapazole] 10 mg PO DAILY 03/06/16 Insulin Aspart [Novolog Flexpen] See Protocol SQ ASDIR #3 dis.syr 06/02/17 Insulin Detemir [Levemir Flextouch] 7 unit SQ HS #3 insuln.pen 06/02/17 <Randa Sanon - Last Filed: 06/03/17 15:27> Discharge Summary Reason For Visit: DIABETES MELLITUS W/KETOACIDOSIS - Home Medications Comprehensive Discharge Medication List: Ambulatory Orders Acetaminophen/Caffeine/Butalb [Fioricet -] 1 - 2 tab PO Q6H PRN #28 tablet MDD 6 tabs 03/06/16 Methimazole [Tapazole] 10 mg PO DAILY 03/06/16 Insulin Aspart [Novolog Flexpen] See Protocol SQ ASDIR #3 dis.syr 06/02/17 Insulin Detemir [Levemir Flextouch] 7 unit SQ HS #3 insuln.pen 06/02/17 <Kenrick Tillman - Last Filed: 06/02/17 20:20> - Home Medications Comprehensive Discharge Medication List: Ambulatory Orders Acetaminophen/Caffeine/Butalb [Fioricet -] 1 - 2 tab PO Q6H PRN #28 tablet MDD 6 tabs 03/06/16 Methimazole [Tapazole] 10 mg PO DAILY 03/06/16 Insulin Aspart [Novolog Flexpen] See Protocol SQ ASDIR #3 dis.syr 06/02/17 Insulin Detemir [Levemir Flextouch] 7 unit SQ HS #3 insuln.pen 06/02/17 <Randa Sanon - Last Filed: 06/03/17 15:27> Condition: Improved - Instructions Diet, Activity, Other Instructions: You were admitted for the treatment of your high blood sugars. We are sending you home on a new insulin regimen to better control your sugars. Please STOP using your insulin pump until you follow up with an core java software engineer. You should take 7 units of Levemir (long acting insulin) at night before bed. You should check your blood sugar three times a day before meals and at night. You should inject yourself with short acting insulin according to the following sliding scale. If taking your blood sugar before a meal, use this sliding scale: Blood Sugar Units to inject 101-150 2 151-200 3 201-250 4 251-300 5 301-350 6 351-400 7 >400 7 If taking your blood sugar before bedtime, use the following sliding scale: Blood Sugar Units to inject 101-150 0 151-200 0 201-250 2 251-300 3 301-350 4 351-400 5 >400 5 Only take short acting insulin if you intend to eat within 15 minutes. If you begin to experience symptoms of hypoglycemia (sweating, shaking, trouble concentrating) please drink some juice and call your doctor immediately. If you experience shortness of breath, chest pain, or if any of your symptoms get worse, please call your doctor or return to the emergency department. Referrals: Kenrick Tillman RES [Resident] - 1 Week Jasmyne Paz MD [Staff Physician] - 1 Week Disposition: HOME This patient is new to me today: Yes Date on this admission: 06/02/17 Emergency Visit: Yes ED Registration Date: 05/31/17 Care time: The patient presented to the Emergency Department on the above date and was hospitalized for further evaluation of their emergent condition. Critical Care patient: No - Discharge Referral Referred to [facility] Med [facility] No <Kenrick Tillman - Last Filed: 06/02/17 20:20>
== END 2017-06-02 15:27 | disposition home or self-care (01) | DRG 420 ==
LOC: JER 04:15 → JERBED 06:35 → JICU 08:08 → J5S 06-01 15:45
PROVIDERS: ADMIT Internal Medicine; ATTEND Internal Medicine
DX: E11.10 Type 2 diabetes mellitus with ketoacidosis without coma (principal); D72.829 Elevated white blood cell count, unspecified; E05.90 Thyrotoxicosis, unspecified without thyrotoxic crisis or storm; Z79.4 Long term (current) use of insulin; Z87.891 Personal history of nicotine dependence; F41.8 Other specified anxiety disorders; E87.1 Hypo-osmolality and hyponatremia; E87.2 Acidosis
CPT/HCPCS: 36415; 71045-TC-FY; 80048; 80053; 80307; 81003; 82009; 82550; 82803; 82947; 82962; 83036; 83605; 83690; 83735; 84100; 84703; 85025; 87040; 87086; 87804; 99285-25; J1644; J7030

== ENCOUNTER 2018-02-11 14:49 | Emergency (ER) | payer OTHER ==
[2018-02-11 15:09] VITALS: BP 124/92; PULSE 100; TEMP 97.8; BMI 18.8
--- NOTE | 2018-02-11 15:13 | PDOC ---
Rapid Medical Evaluation Chief Complaint: Back Pain Time Seen by Provider: 02/11/18 15:07 Medical Evaluation: Allergies Allergy/AdvReac Type Severity Reaction Status Date / Time No Known Drug Allergies Allergy Verified 02/11/18 15:05 Vital Signs Temp Pulse Resp BP Pulse Ox 97.8 F 100 H 18 124/92 100 02/11/18 15:07 02/11/18 15:07 02/11/18 15:07 02/11/18 15:07 02/11/18 15:07 02/11/18 15:09 I have performed a brief in-person evaluation of this patient. The patient presents with a chief complaint of: sudden onset lower back pain radiating to b/l thigh upon wake yesterday. no trauma or injury. Pertinent physical exam findings: mild tenderness to b/l paravertebral muscle of lumbar spine I have ordered the following: x-ray of lumbosacral The patient will proceed to the ED for further evaluation Discharge Disposition - Diagnosis Lumbago Qualifiers: Chronicity: acute Back pain laterality: bilateral Sciatica presence: with sciatica Sciatica laterality: bilateral sciatica Qualified Code(s): M54.42 - Lumbago with sciatica, left side; M54.41 - Lumbago with sciatica, right side - Referrals Referrals: Noman Voss MD [Primary Care Provider] - - Patient Instructions - Post Discharge Activity
[2018-02-11] MEDS ORDERED: IBUPROFEN 600 MG TABLET (FP) PO ONE ×2 (15:51→15:53)
--- NOTE | 2018-02-11 16:00 | PDOC ---
History of Present Illness - General Chief Complaint: Back Pain Stated Complaint: BACK PAIN Time Seen by Provider: 02/11/18 15:07 History Source: Patient Exam Limitations: No Limitations - History of Present Illness Initial Comments: 02/11/18 15:52 Patient came for evaluation low back pain that radiates bilaterally down legs. Patient was concerned because had urinary tract infection with similar complaints 2 weeks ago and was treated. States returned from [place] where she was at the time and patient has reoccurred. Has taken no medication for relief. Denies fever or dysuria. Denies any change in exercise or heavy lifting. Denies any trauma or history of back pain. is diabetic on insulin pump but states blood sugars have been reasonable. Occurred: reports: yesterday Severity: reports: mild, moderate Pain Location: reports: back Past History - Travel Traveled outside of the country in the last 30 days: No Close contact w/someone who was outside of country & ill: No - Past Medical History Allergies/Adverse Reactions: Allergies Allergy/AdvReac Type Severity Reaction Status Date / Time No Known Drug Allergies Allergy Verified 02/11/18 15:05 Home Medications: Ambulatory Orders Methimazole [Tapazole] 10 mg PO DAILY 03/06/16 Insulin Aspart [Novolog Flexpen] See Protocol SQ ASDIR #3 dis.syr 06/02/17 Insulin Detemir [Levemir Flextouch] 7 unit SQ HS #3 insuln.pen 06/02/17 Cyclobenzaprine HCl 10 mg PO Q8H PRN #14 tablet 02/11/18 Naproxen [Naprosyn -] 500 mg PO BID #30 tablet 02/11/18 COPD: No Diabetes: Yes (type 1) Psychiatric Problems: Yes (anxiety/depression) Thyroid Disease: Yes (hyper) - Reproductive History Cervical CA: No Dysfunctional Uterine Bleeding: No Ectopic : No Endometrial CA: No Polycystic Ovaries: No Tubal Ligation: No - Suicide/Smoking/Psychosocial Hx Smoking History: Former smoker Have you smoked in the past 12 months: No Information on smoking cessation initiated: No Hx Alcohol Use: No Drug/Substance Use Hx: No Substance Use Type: Marijuana Review of Systems - Review of Systems Able to Perform ROS?: Yes Is the patient limited Qatari proficient: Yes Constitutional: Yes: Symptoms Reported, See HPI, Malaise. No: Fever HEENTM: Yes: See HPI. No: Symptoms Reported Respiratory: Yes: Symptoms reported Musculoskeletal: Yes: Symptoms Reported, See HPI, Back Pain, Muscle Pain Integumentary: No: Symptoms Reported All Other Systems: Reviewed and Negative *Physical Exam - Vital Signs Last Vital Signs Temp Pulse Resp BP Pulse Ox 97.8 F 100 H 18 124/92 100 02/11/18 15:07 02/11/18 15:07 02/11/18 15:07 02/11/18 15:07 02/11/18 15:07 - Physical Exam General Appearance: Yes: Nourished, Appropriately Dressed, Apparent Distress, Mild Distress HEENT: positive: EMILIA, Normal ENT Inspection, TMs Normal, Pharynx Normal Neck: positive: Supple. negative: Tender Respiratory/Chest: positive: Lungs Clear Musculoskeletal: positive: Normal Inspection, Decreased Range of Motion (mild difficulty with bending at waist, no true C-spine tenderness, but palpable tenderness along the paravertebral spinous muscles bilaterally, worse on the right than the left. Neurovascular intact to legs and ambulatory without unsteadiness or limp). negative: CVA Tenderness Extremity: positive: Normal Capillary Refill, Normal Inspection, Normal Range of Motion, Tender Integumentary: positive: Normal Color, Warm, Pale Neurologic: positive: dewer II-XII NML intact, Fully Oriented, Alert, Normal Mood/ Affect, Normal Response, Motor Strength 5/5 Moderate Sedation - Procedure Monitoring Vital Signs: Procedure Monitoring Vital Signs Temperature 97.8 F 02/11/18 15:07 Pulse Rate 100 H 02/11/18 15:07 Respiratory Rate 18 02/11/18 15:07 Blood Pressure 124/92 02/11/18 15:07 O2 Sat by Pulse Oximetry (%) 100 02/11/18 15:07 Progress Note - Progress Note Progress Note: Urinalysis negative for any evidence of infection or . Noted bleeding with menstrual cycle. Will treat with NSAIDs and cyclobenzaprine *DC/Admit/Observation/Transfer Diagnosis at time of Disposition: Low back strain Qualifiers: Encounter type: initial encounter Qualified Code(s): S39.012A - Strain of muscle, fascia and tendon of lower back, initial encounter - Discharge Dispostion Disposition: HOME Condition at time of disposition: Stable Decision to Admit order: No - Referrals Referrals: Noman Voss MD [Primary Care Provider] - - Patient Instructions Printed Discharge Instructions: DI for Back Strain or Sprain Additional Instructions: Rest, no heavy lifting or exercise until pain is resolved Hot soaks to neck and low back as often as possible/hot showers or Jacuzzis No massage or therapy until spasm is gone Continue Naprosyn 500 mg tablet, 1 tablet every 8 hours for the next 3 days then as needed for pain and swelling Cyclobenzaprine 1-10mg every 8 hours as needed for spasm If not significant improvement within 24 hours with medication and rest regime, followup with private physician for change in medications and /or therapy. - Post Discharge Activity Forms/Work/School Notes: Back to Work
[2018-02-11 16:06] LABS: HCG,QUALITATIVE URINE Negative
[2018-02-11 16:30] LABS: URINE APPEARANCE SLCLOUDY; URINE BILIRUBIN NEGATIVE (<2.0 mg/dL); URINE COLOR YELLOW; URINE GLUCOSE (UA) 1+ (NEGATIVE); URINE KETONE NEGATIVE (NEGATIVE); URINE LEUK ESTERASE NEGATIVE (NEGATIVE); URINE NITRITE NEGATIVE (NEGATIVE); URINE PROTEIN 1+ (NEGATIVE); URINE UROBILINOGEN NEGATIVE mg/dL (0.2-1.0)
[2018-02-11 16:47] LABS: EPI CELLS RARE /HPF (FEW); URINE MUCUS RARE
== END 2018-02-11 17:19 | disposition home or self-care (01) ==
LOC: JERFT 14:49
DX: S39.012A Strain of muscle, fascia and tendon of lower back, initial encounter (principal); X58.XXXA Exposure to other specified factors, initial encounter; Y93.89 Activity, other specified; Y92.89 Other specified places as the place of occurrence of the external cause; Z87.891 Personal history of nicotine dependence; E07.9 Disorder of thyroid, unspecified; F41.8 Other specified anxiety disorders; E10.9 Type 1 diabetes mellitus without complications; Z79.4 Long term (current) use of insulin
CPT/HCPCS: 81003; 81015; 84703; 99281-25

== ENCOUNTER 2018-03-29 13:41 | Emergency (ER) | payer OTHER ==
[2018-03-29 13:55] VITALS: BP 128/85; PULSE 116; TEMP 98.1; BMI 18.8
[2018-03-29] MEDS ORDERED: predniSONE 20 MG TABLET (UD) PO ONE (14:30)
[2018-03-29] MEDS ORDERED: predniSONE 20 MG TABLET (UD) ONE (14:33)
--- NOTE | 2018-03-29 14:44 | PDOC ---
History of Present Illness - General Chief Complaint: Rash Stated Complaint: RASH Time Seen by Provider: 03/29/18 13:56 Past History - Past Medical History Allergies/Adverse Reactions: Allergies Allergy/AdvReac Type Severity Reaction Status Date / Time No Known Drug Allergies Allergy Verified 03/29/18 13:52 Home Medications: Ambulatory Orders Methimazole [Tapazole] 10 mg PO DAILY 03/06/16 Insulin Aspart [Novolog Flexpen] See Protocol SQ ASDIR #3 dis.syr 06/02/17 Insulin Detemir [Levemir Flextouch] 7 unit SQ HS #3 insuln.pen 06/02/17 Hydroxyzine HCl 50 mg PO Q6H #30 tablet 03/29/18 Hydroxyzine HCl 50 mg PO Q6H #30 tablet 03/29/18 Prednisone [Deltasone] 20 mg PO DAILY #8 tablet 03/29/18 COPD: No Diabetes: Yes (type 1) Psychiatric Problems: Yes (anxiety/depression) Thyroid Disease: Yes (hyper) - Reproductive History Cervical CA: No Dysfunctional Uterine Bleeding: No Ectopic : No Endometrial CA: No Polycystic Ovaries: No Tubal Ligation: No - Immunization History Immunization Up to Date: Yes - Suicide/Smoking/Psychosocial Hx Smoking History: Never smoked Have you smoked in the past 12 months: No Hx Alcohol Use: No Drug/Substance Use Hx: No Substance Use Type: Marijuana *Physical Exam - Vital Signs Last Vital Signs Temp Pulse Resp BP Pulse Ox 98.1 F 116 H 18 128/85 98 03/29/18 13:52 03/29/18 13:52 03/29/18 13:52 03/29/18 13:52 03/29/18 13:52 Moderate Sedation - Procedure Monitoring Vital Signs: Procedure Monitoring Vital Signs Temperature 98.1 F 03/29/18 13:52 Pulse Rate 116 H 03/29/18 13:52 Respiratory Rate 18 03/29/18 13:52 Blood Pressure 128/85 03/29/18 13:52 O2 Sat by Pulse Oximetry (%) 98 03/29/18 13:52 ED Treatment Course - LABORATORY CBC & Chemistry Diagram: 03/29/18 14:43 03/29/18 14:43 Medical Decision Making - Medical Decision Making 03/29/18 14:32 32 yo F, history IDDM, hyperthyroidism, here w/ pruritic rash. Patient states she developed a rash to her abdomen over 2 weeks ago and since then it has spread to her back, upper and now lower extremities. States rash intensely pruritic. Denies any obvious inciting factors and no sick contacts or recent travel. No new URI symptoms, fever or chills. Seen at urgent care last week and given his on taper and Pepcid with no relief per patient currently taking Benadryl with no improvement in symptoms. No history of similar rash per patient and has not yet been seen by a director voice See exam Non-specific dermatitis Possible pityriases rosea though no obvious herald patch seen, unlikely hives -benadryl IM -dose of prednisone here -labs r/o other source, i.e secondary syphillis (no h/o STDs) -anticipate dc w/ derm f/u 03/29/18 15:30 Labs, including RPE wnl. +marijuana on utox. Patient with some improvement in pruritus s/p dose of Benadryl and prednisone here. Rpt HR 86 on my reassesment. Will refrain from starting on another course of predisone at this time given history of type 1 diabetes and recently completed a course of prednisone taper. Will instead send with home with a prescription for hydroxyzine and dermatology referral 03/29/18 15:32 *DC/Admit/Observation/Transfer Diagnosis at time of Disposition: Dermatitis - Discharge Dispostion Disposition: HOME Condition at time of disposition: Improved - Prescriptions Prescriptions: Hydroxyzine HCl 50 mg PO Q6H #30 tablet Hydroxyzine HCl 50 mg PO Q6H #30 tablet Prednisone [Deltasone] 20 mg PO DAILY #8 tablet - Referrals Referrals: Jacqueline Voss [Primary Care Provider] - Jaylin Rider MD [Staff Physician] - - Patient Instructions Printed Discharge Instructions: DI for Rash Additional Instructions: Take medications as needed for itching and call Dr. Rider of dermatology on Saturday for an appointment - Post Discharge Activity
[2018-03-29 14:55] LABS: BASO % 0.3 % (0-2.0); EOS % 0.1 % (0-4.5); HEMATOCRIT 39.9 % (32.4-45.2); HEMOGLOBIN 13.8 GM/dL (10.7-15.3); LYMPH % 47.2 % (8-40); MCH 30.4 pg (25.7-33.7); MCHC 34.6 g/dl (32.0-36.0); MEAN CELL VOLUME 87.9 fl (80-96); MEAN PLT VOLUME 7.4 fl (7.5-11.1); MONO % 7.9 % (3.8-10.2); NEUT % 44.5 % (42.8-82.8); PLATELET COUNT 303 K/MM3 (134-434); RBC 4.53 M/mm3 (3.60-5.2); RDW 13.8 % (11.6-15.6); WHITE BLOOD COUNT 5.6 K/mm3 (4.0-10.0)
[2018-03-29 15:06] LABS: HCG,QUALITATIVE URINE Negative
[2018-03-29 15:12] LABS: URINE APPEARANCE CLEAR; URINE BILIRUBIN NEGATIVE (<2.0 mg/dL); URINE COLOR YELLOW; URINE GLUCOSE (UA) 3+ (NEGATIVE); URINE KETONE TRACE (NEGATIVE); URINE LEUK ESTERASE NEGATIVE (NEGATIVE); URINE NITRITE NEGATIVE (NEGATIVE); URINE PROTEIN NEGATIVE (NEGATIVE); URINE UROBILINOGEN NEGATIVE mg/dL (0.2-1.0)
[2018-03-29 15:21] LABS: ALBUMIN 4.1 g/dl (3.4-5.0); ALK PHOS 74 U/L (45-117); ANION GAP 5 MMOL/L (8-16); BILIRUBIN,TOTAL 0.4 mg/dL (0.2-1); BLOOD UREA NITROGEN 8 mg/dL (7-18); CALCIUM 8.8 mg/dL (8.5-10.1); CHLORIDE 108 mmol/L (98-107); CO2 26 mmol/L (21-32); CREATININE 0.7 mg/dL (0.55-1.3); GLUCOSE,RANDOM 95 mg/dL (74-106); POTASSIUM 4.4 mmol/L (3.5-5.1); SGOT/AST 16 U/L (15-37); SGPT/ALT 18 U/L (13-61); SODIUM 138 mmol/L (136-145)
[2018-03-29 15:21] LABS: COCAINE, UR NEGATIVE ng/ml (CUTOFF=300); METHADONE, UR NEGATIVE ng/ml (CUTOFF=300); OPIATES, URI NEGATIVE ng/ml (CUTOFF=300); PHENCYCLIDINE,URINE NEGATIVE ng/ml (CUTOFF=25); URINE AMPHETAMINES NEGATIVE ng/ml (CUTOFF=500); URINE BARBITURATES NEGATIVE ng/ml (CUTOFF=200); URINE BENZODIAZEPINES NEGATIVE ng/ml (CUTOFF=200)
== END 2018-03-29 15:30 | disposition home or self-care (01) ==
LOC: JERFT 13:41
PROC: 3E023GC Introduction of Other Therapeutic Substance into Muscle, Percutaneous Approach (ICD-10-PCS; principal; 2018-03-29)
DX: L30.9 Dermatitis, unspecified (principal); E10.9 Type 1 diabetes mellitus without complications; Z79.4 Long term (current) use of insulin; E05.90 Thyrotoxicosis, unspecified without thyrotoxic crisis or storm; F41.8 Other specified anxiety disorders; F32.9 Major depressive disorder, single episode, unspecified
CPT/HCPCS: 36415; 80053; 80307; 81003; 84703; 85025; 86593; 96372; 99281-25